=== PATIENT | female | born 1940 | race Two or more races ===

== ENCOUNTER 2020-01-10 16:36 | Inpatient (IN) | payer MEDICARE, OTHER ==
[~2020-01-10] VITALS: Ht 172.7 cm; Wt 69.4 kg
[~2020-01-10 16:36] MED LIST: ALL100T PO; AML5T PO; ASPI-231 PO; ATEN50TA PO; HYDR-4833 PO; HYDR12.56 PO; PAR20T PO; POTA-220 PO; RANI-226 PO; ROSU20TA14 PO
[2020-01-10] MEDS ORDERED: SODIUM CHLORIDE 0.9% 1,000 ML IV ONE (17:10)
[2020-01-10] MEDS ORDERED: SODIUM CHLORIDE 0.9% 500 ML IV ONE (17:10)
[2020-01-10] MEDS ORDERED: PROMETHAZINE HCL 25 MG/ML 1ML IV ONE (17:15)
[2020-01-10] MEDS ORDERED: HYDROmorphone HCL 2 MG/ML VL IV ONE (17:15)
[2020-01-10] MEDS ORDERED: DexAMETHasone SOD PHOS 4 MG/1ML SDV INJ IV ONE (17:15)
[2020-01-10 18:18] LABS: Basophils # (auto) 0.1 10 ^3/uL (0-0.2); Eosinophils # (auto) 0.1 10 ^3/uL (0-0.8)
[2020-01-10 18:26] LABS: Neutrophils % (auto) 72.2 % (37.0-80.0)
[2020-01-10 18:29] LABS: Basophils % (auto) 0.9 % (0.0-2.0); Eosinophils % (auto) 0.9 % (0.0-7.0); Hematocrit 33.7 % (36.0-46.0); Hemoglobin 10.9 g/dL (12.2-16.2); Lymphocytes # (auto) 1.9 10 ^3/uL (0.4-5.4); Lymphocytes % (auto) 15.1 % (10.0-50.0); Mean Corpuscular Hemoglobin 27.3 pg (28.0-32.0); Mean Corpuscular Hgb Conc. 32.3 g/dL (32.0-36.0); Mean Corpuscular Volume 84.5 fL (80.0-100.0); Monocytes # (auto) 1.3 10 ^3/uL (0-1.3); Monocytes % (auto) 10.9 % (0.0-12.0); Neutrophils # (auto) 8.9 10 ^3/uL (1.6-8.6); Nucleated Red Blood Cells % 0.2 %; Platelet Count (auto) 530 10^3/uL (140-450); Red Blood Cells 3.99 10^6/uL (4.0-5.20); White Blood Cell 12.4 10^3/uL (4.4-10.8)
[2020-01-10 20:18] LABS: Albumin 1.7 g/dL (3.4-5.0); Calcium 8.4 mg/dL (8.5-10.1); Magnesium 2.3 mg/dL (1.6-2.6); Potassium 4.1 mmol/L (3.5-5.1)
[2020-01-10 20:23] LABS: BUN/Creatinine Ratio 27.7; Bilirubin, Total 0.6 mg/dL (0.2-1.0); Total Protein 7.7 g/dL (6.4-8.2)
[2020-01-10 23:54] LABS: Urine Bacteria NONE SEEN /hpf (None Seen); Urine Blood Negative /uL (Negative); Urine WBC 10 /hpf (0 - 5)
[2020-01-11] MEDS ORDERED: TEMAZEPAM 15 MG CAP PO PRN (00:15)
[2020-01-11] MEDS ORDERED: cefTRIAXone 1GM/50ML D5W 50 ML IV ONE (00:15)
--- NOTE | 2020-01-11 02:04 | NUR ---
MS admit from [facility] admitted to tele/MS after NO SBAR WAS received. Patient is A/O x4, on RA, skin is intact, 22g IV to the left wrist. Patient oriented to SOTERO LOPEZ primary RN, unit, room, bed, and unit policies regarding patient care and visiting hours. Patient weighed by bedscale and encouraged to call if they need something. All questions and concerns addressed, patient verbalized understanding.
[2020-01-11 02:20] VITALS: BP 107/59
[2020-01-11] MEDS: HYDROcodone-ACET 7.5/325MG TAB PO PRN ×4 (02:52→22:25)
--- NOTE | 2020-01-11 02:52 | NUR ---
PAIN Patient is complaining of pain 5/0-10 to the left knee, it feels like it is burning. [place] 7.5mg administered as ordered. Call light is within reach. Will reassess.
[2020-01-11] MEDS: levoFLOXacin 500MG 100 ML IV SCH (03:11)
[2020-01-11] MEDS ORDERED: GABA100C9 PO (03:41)
[2020-01-11] MEDS ORDERED: ATEN50TA PO (03:41)
[2020-01-11] MEDS ORDERED: FAMO-12 PO (03:41)
--- NOTE | 2020-01-11 04:04 | NUR ---
Hospitalist paged for dietary order.
--- NOTE | 2020-01-11 04:05 | NUR ---
PAIN REASSESSMENT Patient is asleep in bed. No S/S of pain noted. Will continue to monitor.
[2020-01-11 05:00] VITALS: BP 101/52
--- NOTE | 2020-01-11 08:00 | NUR ---
Morning note Patient resting in bed with even and unlabored respirations, no distress noted. Instructed patient on POC, fall precautions and to call for assistance as needed. Patient verbalized understanding. Fall precautions in place with call light within reach.
[2020-01-11 08:28] LABS: BUN/Creatinine Ratio 33.7; Calcium 9.4 mg/dL (8.5-10.1)
[2020-01-11 08:40] LABS: Potassium 4.5 mmol/L (3.5-5.1)
[2020-01-11] MEDS: ALLOPURINOL 100 MG TAB PO SCH (09:21)
[2020-01-11] MEDS: PARoxetine 20 MG TAB PO SCH (09:22)
[2020-01-11] MEDS: ENOXAPARIN SOD 40 MG/0.4 ML SYRINGE SC SCH (09:23)
--- NOTE | 2020-01-11 09:50 | NUR ---
was at bedside - Dr. Diaz Unable to perform bedside procedure due to Lovenox being administered as scheduled today.
[2020-01-11] MEDS: ATENOLOL 50 MG TAB PO SCH (10:00)
[2020-01-11] MEDS: amLODIPine BESYLATE 5 MG TAB PO SCH (10:00)
--- NOTE | 2020-01-11 10:58 | NUR ---
RE: Left buttock Open wound located to the left buttock. Patient reports having skin integrity issue prior to admission due to not being ambulatory prior to admission due to left knee pain. Patient stated "I sometimes had to sit in my urine for a little bit at home." Wound care consult placed per protocol. Patient is able to turn self independently. Patient is continent of urine and bowel. Education provided on skin integrity maintenance and pressure ulcer prevention. Patient verbalized understanding.
--- NOTE | 2020-01-11 11:10 | NUR ---
Wound care photo taken per protocol
[2020-01-11 11:43] LABS: Basophils # (auto) 0 10 ^3/uL (0-0.2); Basophils % (auto) 0.3 % (0.0-2.0); Eosinophils # (auto) 0 10 ^3/uL (0-0.8); Hematocrit 32.6 % (36.0-46.0); Lymphocytes # (auto) 0.9 10 ^3/uL (0.4-5.4); Monocytes # (auto) 0.2 10 ^3/uL (0-1.3); Red Blood Cells 3.76 10^6/uL (4.0-5.20)
[2020-01-11 11:45] LABS: Hemoglobin 10.5 g/dL (12.2-16.2); Lymphocytes % (auto) 10.8 % (10.0-50.0); Mean Corpuscular Hemoglobin 27.9 pg (28.0-32.0); Mean Corpuscular Hgb Conc. 32.2 g/dL (32.0-36.0); Mean Corpuscular Volume 86.6 fL (80.0-100.0); Monocytes % (auto) 2.4 % (0.0-12.0); Neutrophils % (auto) 86.5 % (37.0-80.0); Nucleated Red Blood Cells % 0.1 %; Platelet Count (auto) 557 10^3/uL (140-450); Red Cell Distribution Width 18.3 % (11.8-14.3); White Blood Cell 8.1 10^3/uL (4.4-10.8)
--- NOTE | 2020-01-11 11:48 | NUR ---
was at bedside - Dr. Suzanne Andrea This RN was at bedside.
--- NOTE | 2020-01-11 12:25 | NUR ---
RE: elevated PLTs Notified Dr. Suzanne Andrea of elevated PLT level. verbalized understanding. Continue to monitor.
--- NOTE | 2020-01-11 14:00 | NUR ---
WOUND CARE NOTE: IN TO SEE PATIENT AT THIS TIME PER WOUND CARE CONSULT REQUEST. PATIENT RECENTLY ADMITTED TO [facility] WITH DIAGNOSIS OF LEFT KNEE EFFUSION. CURRENT TARUN SCORE IS 16. PATIENT NOTED TO HAVE WOUNDS TO SACRUM/BUTTOCKS. WOUND PHOTO TAKEN UPON ADMIT BY BEDSIDE NURSE FOR REFERENCE. PATIENT STATES THAT SHE INJURED HER LEFT KNEE, AND WAS LEFT BEDBOUND FOR MORE THAN ONE WEEK. SHE ADMITTED THAT SHE DID NOT MOVE MUCH. PATIENT ALSO IS CONTINENT OF URINE, AND IS INCONTINENT FREQUENTLY. PATIENT IS NOTED TO BE ABLE TO SELF TURN/REPOSITION SELF. SHE IS AWARE THAT SHE HAS A WOUND TO THE LEFT BUTTOCK. PATIENT IS NOTED TO HAVE MASD WITH SUPERFICIAL SKIN EROSION NOTED TO LEFT AND RIGHT BUTTOCK/SACRUM. SKIN IS DARK RED, ABRADED. MOISTURE BARRIER CREAM APPLIED. 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 OPEN WOUND BED IS BRIGHT RED. SCANT SEROUS DRAINAGE NOTED. APPLIED ZGUARD TO WOUND. NEW WOUND PHOTO TAKEN AT THIS TIME FOR REFERENCE. RECOMMEND: FREQUENT TURN SCHEDULE Q 2 HOURS, PRN CONDITION PERMITS, WITH PRESSURE REDISTRIBUTION USING PILLOWS/WEDGES, BID/PRN APPLICATION WITH ZGUARD MOISTURE BARRIER CREAM TO OPEN AND ERODED SKIN ON SACRUM/BUTTOCKS, DIETARY CONSULT, SKIN/WOUND CARE PLAN, CONTINUED MONITORING BY WOUND CARE TEAM. Addendum: 01/11/20 at 1548 by Lizbeth Esquivel RN Amended: Links added.
--- NOTE | 2020-01-11 14:06 | NUR ---
promotional model at bedside.
--- NOTE | 2020-01-11 15:03 | NUR ---
RE: Pain Patient requesting PRN pain medication for left knee pain. PRN pain medication not able to be administered at this time per MD order. Instructed patient on the time that medication can be administered. Patient verbalized understanding. Ice pack provided for comfort.
[2020-01-11] MEDS ORDERED: FLUT1SPR5 (15:47)
[2020-01-11] MEDS ORDERED: PARO30TA99 PO (15:49)
[2020-01-11] MEDS ORDERED: ROSU20TA14 PO (15:50)
[2020-01-11] MEDS ORDERED: MELA3TAB27 PO (15:52)
[2020-01-11] MEDS ORDERED: FERR-20 PO (15:53)
--- NOTE | 2020-01-11 16:26 | NUR ---
IV started 22G started in the patient's LHA with clean technique. Patient tolerated well. IV secured. IV education provided. Patient verbalized understanding. Bed returned to lowest locked position with call light within reach.
[2020-01-11 17:00] VITALS: BP 127/68
--- NOTE | 2020-01-11 18:54 | NUR ---
Closing note Patient resting in bed with even and unlabored respirations, no distress noted. Educated patient on pressure ulcer prevention and to turn frequently. Patient verbalized understanding. Patient able to turn self independently. Fall precautions in place with call light within reach.
--- NOTE | 2020-01-11 19:30 | NUR ---
Care endorsed to PRADIP Berry.
--- NOTE | 2020-01-11 19:40 | NUR ---
Opening Shift Note Pt resting in bed with eyes open and resp rate is even and unlabored. NO s/s of any distress noted at this time. POC discussed with pt and pt verbalizes understanding. Bed is low, wheels are locked, and call light is with in reach.
--- NOTE | 2020-01-11 20:25 | NUR ---
Pt found with IV dislodged and new IV started in left hand w/ 22g IV cath.
[2020-01-11 22:00] VITALS: BP 118/52
[2020-01-12] VITALS (8 sets, daily range): BP systolic 126–141; BP diastolic 64–86
[2020-01-12] MEDS: levoFLOXacin 500MG 100 ML IV SCH (00:31)
[2020-01-12] MEDS: ENOXAPARIN SOD 40 MG/0.4 ML SYRINGE SC SCH (07:06)
--- NOTE | 2020-01-12 07:45 | NUR ---
Morning note Patient resting in bed with even and unlabored respirations, no distress noted. Instructed patient on POC, fall precautions, pressure ulcer prevention and to call for assistance as needed. Patient verbalized understanding. Fall precautions in place with call light within reach. Patient able to turn self independently.
[2020-01-12] MEDS: HYDROcodone-ACET 7.5/325MG TAB PO PRN ×2 (09:27→16:08)
[2020-01-12] MEDS: amLODIPine BESYLATE 5 MG TAB PO SCH (09:28)
[2020-01-12] MEDS: ATENOLOL 50 MG TAB PO SCH (09:28)
[2020-01-12] MEDS: PARoxetine 20 MG TAB PO SCH (09:28)
[2020-01-12] MEDS: ALLOPURINOL 100 MG TAB PO SCH (09:28)
[2020-01-12 09:29] LABS: Basophils # (auto) 0 10 ^3/uL (0-0.2); Basophils % (auto) 0.2 % (0.0-2.0); Red Blood Cells 3.47 10^6/uL (4.0-5.20); White Blood Cell 11.4 10^3/uL (4.4-10.8)
[2020-01-12 09:30] LABS: Eosinophils # (auto) 0.1 10 ^3/uL (0-0.8); Eosinophils % (auto) 0.8 % (0.0-7.0); Hemoglobin 9.7 g/dL (12.2-16.2); Lymphocytes # (auto) 1.8 10 ^3/uL (0.4-5.4); Lymphocytes % (auto) 15.5 % (10.0-50.0); Mean Corpuscular Hemoglobin 27.8 pg (28.0-32.0); Mean Corpuscular Hgb Conc. 32.2 g/dL (32.0-36.0); Mean Corpuscular Volume 86.3 fL (80.0-100.0); Monocytes % (auto) 8.6 % (0.0-12.0); Neutrophils # (auto) 8.5 10 ^3/uL (1.6-8.6); Neutrophils % (auto) 74.9 % (37.0-80.0); Platelet Count (auto) 584 10^3/uL (140-450); Red Cell Distribution Width 18.1 % (11.8-14.3)
--- NOTE | 2020-01-12 10:54 | NUR ---
MD was at bedside - Dr. Diaz; bedside procedure performed Bedside procedure performed by MD on the left knee. Patient tolerated well. This RN was at bedside.
--- NOTE | 2020-01-12 10:56 | NUR ---
Liquids and food removed from bedside for NPO status per MD order.
--- NOTE | 2020-01-12 10:56 | NUR ---
was at bedside - Dr. Suzanne Andrea.
[2020-01-12 11:18] LABS: INR 1.2 (0.9-1.15)
--- NOTE | 2020-01-12 13:58 | NUR ---
Nutrition Assessment Notes Please refer to link for full assessment notes. Est energy needs: 7500-6042 kcals (20-23 kcal/kgBW) Est protein needs: 75-82 gms/day (1.0-1.1 gm/kgBW) Will continue to monitor and reassess prn. Addendum: 01/12/20 at [address] Amended: Links added.
--- NOTE | 2020-01-12 14:03 | NUR ---
assessment Patient is a 79 year old female who is alert and oriented. Prior to admission patient lived home alone and was independent. Patient informed me she was able to care for her own ADLs. Per patient she will return home to her prior living arrangements post discharge and family will transport her home. Patient informed me she has a cane for home use. Patient informed me she was admitted for knee pain. Per patient she will have knee drained today. Patient informed me she doesn't think she can take care of her needs with this pain. Patient is refusing resources for private pay caregivers. I informed patient we will see if she qualifies for SNF when its closer to discharge. Patient will need a PT evaluation. Patients PCP is Dr Hastings. I informed patient she has a right to speak to a socially responsible investment adviser regarding all care. I informed patient she has a right to participate in any and all discharge planning. Patient has a POA and advanced directive. Patient verbalized understanding and agreed to discharge plan. Addendum: 01/12/20 at 1407 by Nelida MONGE Amended: Links added.
--- NOTE | 2020-01-12 16:06 | NUR ---
RE: Pain Patient requesting PRN pain medication. Only PO PRN pain medication available. Notified Dr. Suzanne Andrea. Order received and read back to verify.
[2020-01-12] MEDS ORDERED: MORPHINE SULF INJ 2 MG/ML SYRINGE 1ML IV PRN ×2 (16:15→19:15)
--- NOTE | 2020-01-12 16:22 | NUR ---
Anesthesiologist called and requested repeat liver panel test. Order placed.
[2020-01-12 16:41] LABS: Albumin 1.7 g/dL (3.4-5.0); Bilirubin, Direct 0.2 mg/dL (0-0.2)
[2020-01-12 16:44] LABS: Bilirubin, Total 0.3 mg/dL (0.2-1.0); Total Protein 7.4 g/dL (6.4-8.2)
--- NOTE | 2020-01-12 16:46 | NUR ---
Called laboratory RE: STAT lab order Tech to come to bedside.
[2020-01-12] MEDS ORDERED: LIDOCAINE 1% HCL (LOCAL ANESTH.) INJ 20ML MDV ONE ×2 (17:05→18:14)
--- NOTE | 2020-01-12 17:15 | NUR ---
Patient transferred to Pre-op via hospital bed. Respirations even and unlabored, no distress noted. IV patent with no s/s of infiltration or leaking.
[2020-01-12] MEDS ORDERED: CLINDAMYCIN 600MG IV 50 ML IV ONE (17:23)
[2020-01-12] MEDS ORDERED: MIDAZOLAM HCL 1MG/1ML-2 ML VIAL ONE (17:52)
[2020-01-12] MEDS ORDERED: fentaNYL CITRATE 100 MCG/2 ML VL ONE ×3 (17:52→18:29)
--- NOTE | 2020-01-12 17:52 | NUR ---
RE: Intervention Patient off unit at procedure. Addendum: 01/12/20 at 6803 by Deanne Nina RN Amended: Links added.
[2020-01-12] MEDS ORDERED: PROPOFOL 10 MG/ML 20 ML IV ONE (17:56)
--- NOTE | 2020-01-12 18:48 | NUR ---
Closing note Patient off unit at procedure.
--- NOTE | 2020-01-12 19:09 | NUR ---
Care endorsed to Kristi Espinosa RN.
[2020-01-12] MEDS ORDERED: ONDANSETRON HCL 4 MG/2 ML VIAL IV PRN (19:15)
[2020-01-12] MEDS ORDERED: hydrALAZINE HCL 20 MG/ML VL IV PRN (19:15)
[2020-01-12] MEDS ORDERED: ePHEDrine SULFATE 50 MG/ML AMP IV PRN (19:15)
--- NOTE | 2020-01-12 20:10 | NUR ---
Received report from Yola MOSELEY and pt received back to room 274-B in stable cond. Pt is slightly drowsy but alert and oriented x4. Pt c/o right knee pain and will medicate per orders. Pt VSS- see vs record. Pt reoriented to room and procedures and POC discussed with pt. Pt verbalizes understanding. Bed is low, wheels are locked, and call light is with in reach. Bed alarm is set for pt safety.
--- NOTE | 2020-01-12 20:15 | NUR ---
SEE VS RECORD FOR VS Q 30 MIN X4 STARTING NOW.
[2020-01-12] MEDS: MORPHINE SULF INJ 2 MG/ML SYRINGE 1ML IV PRN (20:49)
[2020-01-13] MEDS: levoFLOXacin 500MG 100 ML IV SCH (02:00)
--- NOTE | 2020-01-13 04:15 | NUR ---
PT INCONT OF URINE AND LINENS AND GOWN CHANGED AT THIS TIME.
[2020-01-13] MEDS: MORPHINE SULF INJ 2 MG/ML SYRINGE 1ML IV PRN ×2 (04:22→14:55)
[2020-01-13 05:07] VITALS: BP 128/71
[2020-01-13 08:00] VITALS: BP 124/69
[2020-01-13 09:07] VITALS: BP 124/69
[2020-01-13] MEDS: ALLOPURINOL 100 MG TAB PO SCH (10:58)
[2020-01-13] MEDS: ENOXAPARIN SOD 40 MG/0.4 ML SYRINGE SC SCH (10:58)
[2020-01-13] MEDS: ATENOLOL 50 MG TAB PO SCH (10:59)
[2020-01-13] MEDS: PARoxetine 20 MG TAB PO SCH (10:59)
[2020-01-13] MEDS: amLODIPine BESYLATE 5 MG TAB PO SCH (11:00)
[2020-01-13] MEDS: HYDROcodone-ACET 7.5/325MG TAB PO PRN ×2 (11:06→18:26)
[2020-01-13 13:00] VITALS: BP 118/67
[2020-01-13 16:43] VITALS: BP 112/62
--- NOTE | 2020-01-13 18:30 | NUR ---
PATIENT DRAINAGE AMOUNT FROM VAC ON LEFT KNEE FOR MY SHIFT WAS 80ML RED SANGUINOUS
--- NOTE | 2020-01-13 19:25 | NUR ---
RECEIVED PATIENT FROM DAY SHIFT RN. PATIENT RESTING IN BED. NO S/S OF DISTRESS NOTED. C/O PAIN ON LEFT KNEE @ 6/10 AFTER PAIN MEDICATION GIVEN EARLIER. REINFORCED THE SCHEDULE OF PAIN MANAGEMENT. WILL COME BACK FOR PAIN MEDICATION WHEN THE TIME IS DUE AND PER PATIENT REQUESTS. PATIENT VERBALIZED UNDERSTANDING. DRESSING ON LEFT KNEE C/D/I WITH NEGATIVE DRAINAGE VAC. BLOODY OUTPUT NOTED IN THE DRAINAGE TUBE. NOT IN THE BAG. POC INSTRUCTED AND ENCOURAGED PATIENT TO CALL FOR PATTERN ASSEMBLER IF NEEDED. BED IN LOWEST POSITION WITH SIDE RAILS UP X 2. CALL HER WITHIN REACH. ALARM ON. CONTINUE TO MONITOR FOR CHANGES Q1H AND PRN.
--- NOTE | 2020-01-13 20:20 | NUR ---
SCD IS ON NOW. PATIENT TOLERATED WELL. CONTINUE CARE.
[2020-01-13 22:03] VITALS: BP 118/59
--- NOTE | 2020-01-13 22:45 | NUR ---
ASSISTED PATIENT ON BEDPAN. PATIENT TOLERATED WELL. CONTINUE TO MONITOR
[2020-01-14] MEDS: levoFLOXacin 500MG 100 ML IV SCH (00:44)
[2020-01-14] MEDS: HYDROcodone-ACET 7.5/325MG TAB PO PRN ×4 (00:44→22:01)
--- NOTE | 2020-01-14 00:44 | NUR ---
PATIENT C/O PAIN @ 05/06, PATIENT PREFERRED NORCO, MEDICATED PATIENT ORDERED.
--- NOTE | 2020-01-14 01:40 | NUR ---
REASSESSED PAIN LEVEL DOWN TO 5/10. CONTINUE TO MONITOR.
[2020-01-14 05:41] VITALS: BP 15/63
--- NOTE | 2020-01-14 05:50 | NUR ---
ASSISTED PATIENT ON BEDPAN. PATIENT TOLERATED WELL. CONTINUE TO MONITOR
[2020-01-14 05:58] LABS: Eosinophils # (auto) 0.1 10 ^3/uL (0-0.8); Hemoglobin 9.1 g/dL (12.2-16.2); Lymphocytes # (auto) 1.7 10 ^3/uL (0.4-5.4); Monocytes % (auto) 10.2 % (0.0-12.0); White Blood Cell 9.3 10^3/uL (4.4-10.8)
[2020-01-14 06:01] LABS: Basophils # (auto) 0.1 10 ^3/uL (0-0.2); Basophils % (auto) 0.6 % (0.0-2.0); Eosinophils % (auto) 0.8 % (0.0-7.0); Hematocrit 28.1 % (36.0-46.0); Lymphocytes % (auto) 18.2 % (10.0-50.0); Mean Corpuscular Hemoglobin 27.5 pg (28.0-32.0); Mean Corpuscular Hgb Conc. 32.5 g/dL (32.0-36.0); Mean Corpuscular Volume 84.6 fL (80.0-100.0); Monocytes # (auto) 0.9 10 ^3/uL (0-1.3); Neutrophils # (auto) 6.5 10 ^3/uL (1.6-8.6); Neutrophils % (auto) 70.2 % (37.0-80.0); Platelet Count (auto) 509 10^3/uL (140-450); Red Blood Cells 3.32 10^6/uL (4.0-5.20); Red Cell Distribution Width 16.7 % (11.8-14.3)
--- NOTE | 2020-01-14 06:51 | NUR ---
PATIENT C/O PAIN @ 05/06, PATIENT PREFERRED NORCO, MEDICATED PATIENT ORDERED.
--- NOTE | 2020-01-14 07:38 | NUR ---
Opening Shift Note Assumed care of patient, awake and alert. No S/S of distress/SOB or pain. Instructed on POC and to call for assist PRN, will continue to monitor for changes Q1hr and PRN. Bed locked in lowest position with two side rails up and call light in reach.
[2020-01-14 08:00] VITALS: BP 100/52
[2020-01-14 09:00] VITALS: BP_SYST 100; BP_SYST 153; BP_DIAS 52; BP_DIAS 91
[2020-01-14] MEDS: amLODIPine BESYLATE 5 MG TAB PO SCH (10:00)
[2020-01-14] MEDS: ATENOLOL 50 MG TAB PO SCH (10:00)
[2020-01-14] MEDS: ALLOPURINOL 100 MG TAB PO SCH (10:21)
[2020-01-14] MEDS: ENOXAPARIN SOD 40 MG/0.4 ML SYRINGE SC SCH (10:21)
[2020-01-14] MEDS: PARoxetine 20 MG TAB PO SCH (10:21)
[2020-01-14 13:00] VITALS: BP 97/57
[2020-01-14 17:00] VITALS: BP 118/67
--- NOTE | 2020-01-14 18:34 | NUR ---
TOTAL DRAINAGE OUTPUT FOR MY SHIFT IS 15 ML.
--- NOTE | 2020-01-14 19:30 | NUR ---
RECEIVED PATIENT FROM DAY SHIFT RN. PATIENT RESTING IN BED. NO S/S OF DISTRESS NOTED. C/O PAIN ON LEFT KNEE @ 5/10 AFTER PAIN MEDICATION GIVEN EARLIER. PATIENT UNDERSTOOD THE SCHEDULE OF PAIN MANAGEMENT. WILL COME BACK FOR PAIN MEDICATION WHEN THE TIME IS DUE AND PER PATIENT REQUESTS. DRESSING ON LEFT KNEE C/D/I DRAINING WITH HEMOVAC. POC INSTRUCTED AND ENCOURAGED PATIENT TO CALL FOR STEAMER OPERATOR IF NEEDED. BED IN LOWEST POSITION WITH SIDE RAILS UP X 2. CALL HER WITHIN REACH. ALARM ON. CONTINUE TO MONITOR FOR CHANGES Q1H AND PRN.
[2020-01-14 22:00] VITALS: BP 128/65
--- NOTE | 2020-01-14 22:01 | NUR ---
PATIENT C/O PAIN @ 810 AND PREFERRED NORCO, MEDICATED PATIENT ORDERED.
--- NOTE | 2020-01-14 22:05 | NUR ---
PATIENT'S TEMP 100.5, COOLING MEASURE APPLIED. SINCE PATIENT JUST HAD NORCO EARLIER, WILL CONTINUE TO MONITOR THE TEMP.
--- NOTE | 2020-01-14 22:43 | NUR ---
REASSESSED PATIENT TEMP 99.9. CONTINUE COOLING MEASURE. CONTINUE TO MONITOR.
--- NOTE | 2020-01-14 23:00 | NUR ---
REASSESSED PAIN LEVEL DOWN TO 6/10. CONTINUE TO MONITOR.
--- NOTE | 2020-01-15 01:08 | NUR ---
REASSESSED TEMP 98.2. CONTINUE TO MONITOR.
[2020-01-15] MEDS: levoFLOXacin 500MG 100 ML IV SCH (01:15)
--- NOTE | 2020-01-15 03:25 | NUR ---
ASSISTED PATIENT ON BEDPAN. PATIENT TOLERATED WELL. CONTINUE TO MONITOR
[2020-01-15 05:00] VITALS: BP 113/64
--- NOTE | 2020-01-15 06:10 | NUR ---
ASSISTED PATIENT ON BEDPAN. PATIENT TOLERATED WELL. CONTINUE TO MONITOR
--- NOTE | 2020-01-15 07:40 | NUR ---
Opening shift note Assumed care of patient. Patient A&Ox4, respirations even and non-labored with no s/s of distress. Hemovac compressed, patent and draining 15 mL of serosanguineous fluid. Dressings clean, dry, and intact. IV flushed, patent and intact. Discussed POC with patient who verbalized understanding. Bed lowered/locked with 2 side rails up. Call light within reach. Will continue to monitor.
[2020-01-15 08:00] VITALS: BP 124/64
[2020-01-15 09:00] VITALS: BP 124/64
[2020-01-15] MEDS: amLODIPine BESYLATE 5 MG TAB PO SCH (09:16)
[2020-01-15] MEDS: ALLOPURINOL 100 MG TAB PO SCH (09:16)
[2020-01-15] MEDS: PARoxetine 20 MG TAB PO SCH (09:16)
[2020-01-15] MEDS: HYDROcodone-ACET 7.5/325MG TAB PO PRN ×2 (09:17→16:38)
--- NOTE | 2020-01-15 09:17 | NUR ---
Pain Patient c/o left knee pain 05/06. Discussed Morphine and [place] with patient. Administered [place] 7.5/325 mg per EMAR. Will continue to monitor.
[2020-01-15] MEDS: ENOXAPARIN SOD 40 MG/0.4 ML SYRINGE SC SCH (09:18)
[2020-01-15] MEDS: ATENOLOL 50 MG TAB PO SCH (09:18)
--- NOTE | 2020-01-15 10:17 | NUR ---
Pain reassessed Patient resting with eyes closed, respirations deep, even and non-labored with no s/s of distress or discomfort. Will continue to monitor.
[2020-01-15 12:46] VITALS: BP 108/58
[2020-01-15 13:48] LABS: Basophils # (auto) 0.1 10 ^3/uL (0-0.2); Basophils % (auto) 0.9 % (0.0-2.0); Eosinophils # (auto) 0 10 ^3/uL (0-0.8); Eosinophils % (auto) 0.6 % (0.0-7.0); Hematocrit 27.9 % (36.0-46.0); Hemoglobin 8.9 g/dL (12.2-16.2); Lymphocytes # (auto) 1.2 10 ^3/uL (0.4-5.4); Lymphocytes % (auto) 14.8 % (10.0-50.0); Mean Corpuscular Hemoglobin 27.6 pg (28.0-32.0); Mean Corpuscular Hgb Conc. 32.1 g/dL (32.0-36.0); Mean Corpuscular Volume 86.2 fL (80.0-100.0); Monocytes # (auto) 0.8 10 ^3/uL (0-1.3); Monocytes % (auto) 10.1 % (0.0-12.0); Neutrophils % (auto) 73.6 % (37.0-80.0); Platelet Count (auto) 467 10^3/uL (140-450); Red Blood Cells 3.23 10^6/uL (4.0-5.20); Red Cell Distribution Width 17.5 % (11.8-14.3); White Blood Cell 8.2 10^3/uL (4.4-10.8)
[2020-01-15 14:01] LABS: Albumin 1.6 g/dL (3.4-5.0); BUN/Creatinine Ratio 20.9; Calcium 8.4 mg/dL (8.5-10.1); Potassium 4.4 mmol/L (3.5-5.1)
[2020-01-15 14:04] LABS: Bilirubin, Total 0.4 mg/dL (0.2-1.0); Total Protein 6.8 g/dL (6.4-8.2)
--- NOTE | 2020-01-15 14:50 | NUR ---
D/C Planning Per consult for home health physical therapy. Faxed clinical information to [facility]. Per José Miguel with [facility] patient has been accepted and service to start within 24-48hrs upon d/c day.
--- NOTE | 2020-01-15 15:53 | NUR ---
DR VARGAS BEDSIDE D/C'd DRAIN FROM LEFT KNEE; BARBARA IN PLACE, EDGES APPROXIMATED, NO DRAINAGE, NO SIGNS OF INFECTION, DR VARGAS APPLIED STERILE GAUZE , WRAPPED WITH KERLIX AND SECURED WITH TAPE. PATIENT TOLERATED WELL.
[2020-01-15 17:00] VITALS: BP 122/59
--- NOTE | 2020-01-15 18:00 | NUR ---
NEW IV STARTED 20G LEFT FOREARM SALINE LOCKED. Addendum: 01/15/20 at 1911 by MICHELLE CLINE RN 20G REQUIRED FOR CT WITH CONTRAST Addendum: 01/16/20 at 1202 by MICHELLE CLINE RN IV SIZE 22 G NOT 20
[2020-01-15 21:50] VITALS: BP 110/57
[2020-01-15] MEDS: MORPHINE SULF INJ 2 MG/ML SYRINGE 1ML IV PRN (22:23)
[2020-01-16] MEDS: levoFLOXacin 500MG 100 ML IV SCH (00:19)
--- NOTE | 2020-01-16 00:30 | NUR ---
IV access for CT with contrast Unable to obtain [address]. Hospitalist made aware, received orders for midline placement. Radiology made aware.
[2020-01-16] MEDS: HYDROcodone-ACET 7.5/325MG TAB PO PRN ×3 (01:26→18:03)
--- NOTE | 2020-01-16 01:26 | NUR ---
Pain level 8/10 Patient requested [place] for left knee pain 8/10.
[2020-01-16 05:00] VITALS: BP 118/58
--- NOTE | 2020-01-16 07:20 | NUR ---
Opening shift note Assumed care of patient. Patient A&Ox4, respirations even and non-labored with no s/s of distress. Discussed POC with patient who verbalized understanding. Patient stated her left knee pain level was 5/10 which was a tolerable rate at this time. Bed lowered/locked with 2 side rails up. Call light within reach. Will continue to monitor.
[2020-01-16 08:00] VITALS: BP 111/69
[2020-01-16 09:00] VITALS: BP 111/64
--- NOTE | 2020-01-16 09:40 | NUR ---
Pain Patient having 8/10 right knee pain. Administered 7.5/325 [place] per EMAR. Will continue to monitor.
[2020-01-16] MEDS: ENOXAPARIN SOD 40 MG/0.4 ML SYRINGE SC SCH (09:44)
[2020-01-16] MEDS: ATENOLOL 50 MG TAB PO SCH (09:45)
[2020-01-16] MEDS: ALLOPURINOL 100 MG TAB PO SCH (09:45)
[2020-01-16] MEDS: amLODIPine BESYLATE 5 MG TAB PO SCH (09:46)
[2020-01-16] MEDS: PARoxetine 20 MG TAB PO SCH (09:46)
--- NOTE | 2020-01-16 10:45 | NUR ---
Dr. Diaz bedside
--- NOTE | 2020-01-16 11:00 | NUR ---
Pain Reassessed Patient reassessed for pain during PT. Patient stated that after starting Pt her pain went from 5/10 to 8/10. Administered Morphine 2mg per EMAR. Will continue to monitor.
--- NOTE | 2020-01-16 11:00 | NUR ---
DR Bren MOCTEZUMA BEDSIDE.
[2020-01-16] MEDS: MORPHINE SULF INJ 2 MG/ML SYRINGE 1ML IV PRN ×2 (11:08→21:58)
[2020-01-16] MEDS ORDERED: LACTULOSE 20Gm/30ML SOLN PO ONE (11:15)
--- NOTE | 2020-01-16 11:30 | NUR ---
Pain reassessed Patient sitting up, A&Ox4 with no s/s of distress. Patient stated that her pain was a 4/10 and that she felt much better. Will continue to monitor.
[2020-01-16 13:00] VITALS: BP 101/60
--- NOTE | 2020-01-16 13:41 | NUR ---
Dressing change Changed dressing as instruction by Dr. Diaz. Left knee, edges approximated, no drainage or s/s of infection. 17 peterson present. Cleansed with NS, pat dry with sterile gauze, covered with sterile gauze. Secured with Kerlix and tape. Patient tolerated well.
--- NOTE | 2020-01-16 15:17 | NUR ---
LACTULOSE GIVEN ONE TIME ORDER.
[2020-01-16 17:00] VITALS: BP 110/62
--- NOTE | 2020-01-16 19:16 | NUR ---
ENDORSED CARE TO NIGHT RN
--- NOTE | 2020-01-16 19:20 | NUR ---
Opening Shift Note Received report from Miguelito MOSELEY. Assumed care of patient, awake and alert. No S/S of distress/SOB or pain. Instructed on POC and to call for assist PRN. Fall precaution measures in place, will continue to monitor for changes Q1hr and PRN.
--- NOTE | 2020-01-16 21:58 | NUR ---
Complains of L knee pain 05/06, Morphine IV given.
[2020-01-16 22:00] VITALS: BP 104/58
--- NOTE | 2020-01-16 22:58 | NUR ---
Reassessed pain level, states no pain at this time.
[2020-01-17] VITALS (7 sets, daily range): BP systolic 95–117; BP diastolic 49–63
[2020-01-17] MEDS: MORPHINE SULF INJ 2 MG/ML SYRINGE 1ML IV PRN ×4 (04:05→23:45)
--- NOTE | 2020-01-17 04:05 | NUR ---
Request for pain medication 05/06 on L knee, Morphine IV given.
--- NOTE | 2020-01-17 04:50 | NUR ---
Pain level is 0, continue care.
--- NOTE | 2020-01-17 06:29 | NUR ---
Wound dressing slight to moderately soaked, dressing changed.
--- NOTE | 2020-01-17 08:00 | NUR ---
Opening Note Assumed care of patient, she is A & O x 4, no s/s of distress. Patient c/o pain 8/ to the right knee, will medicate per orders. Patient states "I live alone, I don't have any family to help me at home, I don't know how I will take care of myself." POC discussed with patient, will follow up with physician regarding discharge plans. Bed is in lowest, locked position, call light within reach. Will continue to monitor Q1h and PRN.
--- NOTE | 2020-01-17 08:44 | NUR ---
01/16/20 PT made 2 attempts to get patient out of bed. First, pt was not medicated and second attempt pt received [place], orally. Pt made the attempt to sit at the edge of bed however, pain level was increased. Discussed with patient the importance of mobility and ROM for L knee, pt understood. Pt worked on exercises while lying in bed; supine. Discussed with patients nurse the possibility of pt receiving morphine prior to working w/ PT Addendum: 01/17/20 at 0847 by Kaylynn Berry PT Amended: Links added.
--- NOTE | 2020-01-17 08:47 | NUR ---
01/16/20 Pt worked on ankle pumps, quad sets, gluteal sets and hip abd/add x 10 reps for each exercise. Pt is willing to work with PT however, her pain level is high and pain is excruciating to her L knee Addendum: 01/17/20 at 0849 by Kaylynn Berry PT Amended: Links added.
[2020-01-17] MEDS: levoFLOXacin 500 MG TAB PO SCH (09:51)
[2020-01-17] MEDS: amLODIPine BESYLATE 5 MG TAB PO SCH (09:53)
[2020-01-17] MEDS: PARoxetine 20 MG TAB PO SCH (09:53)
[2020-01-17] MEDS: ATENOLOL 50 MG TAB PO SCH (09:54)
[2020-01-17] MEDS: ALLOPURINOL 100 MG TAB PO SCH (09:54)
[2020-01-17] MEDS: ENOXAPARIN SOD 40 MG/0.4 ML SYRINGE SC SCH (09:55)
--- NOTE | 2020-01-17 10:40 | NUR ---
Dr. Andrea at bedside. Orders received, read back and verified. Patient verbalized need for more assistance at home, she is unable to care for her own ADLs in her current condition, and has no help at home. SNF placement will be considered for patient. Will medicate per orders for constipation, no BM since 01/09.
--- NOTE | 2020-01-17 10:45 | NUR ---
Spoke to Nelida Francois regarding SNF placement She will start to work on it. Will follow up with Nelida regarding placement.
[2020-01-17] MEDS ORDERED: MILK OF MAGNESIA 30ML SUSP PO ONE (11:00)
[2020-01-17] MEDS: HYDROcodone-ACET 7.5/325MG TAB PO PRN ×2 (12:07→18:39)
--- NOTE | 2020-01-17 14:00 | NUR ---
Patient states she spoke to public health social worker. They would be working on checking if she qualifies for SNF based on insurance coverage.
--- NOTE | 2020-01-17 16:21 | NUR ---
Nutrition Followup Notes Pt wt is 76.3 kg Pt appetite is fair aeb 50% x3 PO intake per RN doc. Pt with no noted distress except continued constipation, no complaints. Will continue to monitor PO status, skin status, pertinent labs and weight trends. Will f/u in 3 to 5 days. Est energy needs: 9926-0225 kcals (20-23 kcal/kgBW) Est protein needs: 75-82 gms/day (1.0-1.1 gm/kgBW) Will continue to monitor and reassess prn. LABS: GLUC 137 H, CA 8.4 L, ALB 1.6 L GI: Every 5-7 days, currently constipated per RN doc. BS: 18 mod risk, please refer to wound assessment report for full details. PES: Problem Altered nutrition related lab values r/t current medical condition aeb hyperchloremia, hyperglycemia, hypoalbuminemia, elev LFTs, elev Alk Phos Comments Will continue to monitor NPO status, skin status, pertinent labs and weight trends. Will f/u in 3 to 5 days. 1) Continue to monitor pt PO intake to meet at least 75% of meals 2) If albumin continues trending down consider Prostat 1 pkt BID 3) Continue current plan of care
--- NOTE | 2020-01-17 17:00 | NUR ---
No updates from Taxi Truck Driver regarding SNF placement. Will continue to monitor patient Q1h and PRN.
--- NOTE | 2020-01-17 17:08 | NUR ---
Dr. Diaz at bedside. Dr. Diaz would like the patient to follow up with him for staple removal on January 25. Need to call to make an appointment. Office is closed at this time, will endorse to NOC shift.
--- NOTE | 2020-01-17 19:30 | NUR ---
Opening Shift Note Received report from Herminia MOSELEY. Assumed care of patient, awake and alert. No S/S of distress/SOB or pain. Instructed on POC and to call for assist PRN, will continue to monitor for changes Q1hr and PRN.
[2020-01-18 04:56] VITALS: BP 110/64
--- NOTE | 2020-01-18 05:30 | NUR ---
Discharge wound photo taken. Dressing on L knee changed.
[2020-01-18] MEDS: HYDROcodone-ACET 7.5/325MG TAB PO PRN (05:53)
[2020-01-18 09:00] VITALS: BP 130/64
--- NOTE | 2020-01-18 09:02 | NUR ---
PAIN PATIENT C/O LEFT KNEE PAIN WHICH SHE RATES AT A 8/10. PATIENT REQUESTING PAIN MEDICATION THROUGH IV. WILL ASSESS VS AND MEDICATE PER MD ORDER. WILL CONTINUE TO MONITOR.
[2020-01-18] MEDS: MORPHINE SULF INJ 2 MG/ML SYRINGE 1ML IV PRN ×4 (09:36→22:04)
[2020-01-18] MEDS: ENOXAPARIN SOD 40 MG/0.4 ML SYRINGE SC SCH (09:37)
[2020-01-18] MEDS: levoFLOXacin 500 MG TAB PO SCH (09:44)
[2020-01-18] MEDS: PARoxetine 20 MG TAB PO SCH (09:45)
[2020-01-18] MEDS: amLODIPine BESYLATE 5 MG TAB PO SCH (09:46)
[2020-01-18] MEDS: ALLOPURINOL 100 MG TAB PO SCH (09:46)
[2020-01-18] MEDS: ATENOLOL 50 MG TAB PO SCH (09:48)
--- NOTE | 2020-01-18 10:06 | NUR ---
RE PAIN PATIENT VERBALIZES DECREASED PAIN LEVEL AND NOW RATES IT A A 5/10 WHICH PER PATIENT IS A TOLERABLE LEVEL. PATIENT REPOSITIONED FOR OPTIMAL COMFORT. NO FURTHER ACTIONS NEEDED AT THIS TIME. WILL CONTINUE TO MONITOR.
--- NOTE | 2020-01-18 10:43 | NUR ---
MD MOCTEZUMA AT BED SIDE DISCUSSING POC WITH PATIENT. PATIENT VERBALIZES UNDERSTANDING. NEW ORDERS RECEIVED. WILL CONTINUE TO MONITOR.
--- NOTE | 2020-01-18 10:51 | NUR ---
CHILD'S NURSE LILIANE DISCUSSING POC AND OPTIONS WITH PATIENT VIA PHONE
--- NOTE | 2020-01-18 12:20 | NUR ---
WOUND CARE NOTE: Patient has DC order. Discharged photo of wounds taken by bedside nurse this morning.
[2020-01-18 13:00] VITALS: BP 104/55
--- NOTE | 2020-01-18 14:20 | NUR ---
PER LILIANE [facility] REQUESTING TWO NEGATIVE COVID TESTS WITHIN 24 HOURS OF EACH OTHER UNTIL THEY CAN ACCEPT PATIENT. MICHELLE EDEN MD.
--- NOTE | 2020-01-18 14:45 | NUR ---
MD MOCTEZUMA PAGED TO INFORM PATIENTS TRANSFER STATUS PER PRIMARY SCHOOL TEACHER LIBRARIAN, LILIANE Jaimes DETAILED VOICEMAIL LEFT. AWAITING CALL BACK.
--- NOTE | 2020-01-18 15:06 | NUR ---
RECEIVED CALL BACK FROM MD MOCTEZUMA. MD AWARE OF TRANSFER STATUS AND NEW ORDERS HAVE BEEN RECEIVED, READ BACK AND VERIFIED. WILL IMPLEMENT.
--- NOTE | 2020-01-18 15:24 | NUR ---
PER CREDIT REFERENCE CLERK, [facility] REQUESTING PHYSICAL THERAPY RE EVALUATION. ORDER ENTERED STAT.
--- NOTE | 2020-01-18 15:29 | NUR ---
D/C Planning Per SS consult for SNF Placement. Faxed clinical information to health plan on 01/17/2020. Placed called to [employer] at 12:14 and 13:39 and left voicemail regarding patient. Placed a called to Drake with [facility] rehab in [place] Ph:). Per Drake with [facility] rehab they are willing to accept patient however, they will need two (-) COVID-19 test within 24 of each other. Informed PRADIP Harper. Per PRADIP Harper they will test and second result should be completed by 14:00 tomorrow Wednesday. Will follow up with Drake once results are completed.
--- NOTE | 2020-01-18 15:40 | NUR ---
COVID SWAB #1 COLLECTED AND WALKED DOWN TO LABORATORY PER ORDER.
[2020-01-18 16:48] VITALS: BP 110/56
[2020-01-18 22:00] VITALS: BP 108/50
[2020-01-19] MEDS: MORPHINE SULF INJ 2 MG/ML SYRINGE 1ML IV PRN ×6 (00:40→18:33)
[2020-01-19 05:00] VITALS: BP 124/48
--- NOTE | 2020-01-19 08:32 | NUR ---
CALLED LAB FOR COVID SWAB, THEY SAID RESULTS SHOULD BE READY BY 1600 ONCE SENT. PT REPORTS 8/ PAIN LEFT LEG, WILL GIVE PAIN MEDS. PT DID NOT RECEIVE BREAKFAST TRAY, CALLED [facility]UTR[facility] TO SEND.
[2020-01-19 09:00] VITALS: BP_SYST 104; BP_SYST 96; BP_DIAS 53; BP_DIAS 61
--- NOTE | 2020-01-19 09:39 | NUR ---
SECOND COVID SAMPLE SENT TO LAB, JAY BRASWELL WALKED SAMPLE DOWN PER PROTOCOL.
[2020-01-19] MEDS: ATENOLOL 50 MG TAB PO SCH (10:00)
[2020-01-19] MEDS: PARoxetine 20 MG TAB PO SCH (10:10)
[2020-01-19] MEDS: ENOXAPARIN SOD 40 MG/0.4 ML SYRINGE SC SCH (10:11)
[2020-01-19] MEDS: levoFLOXacin 500 MG TAB PO SCH (10:11)
[2020-01-19] MEDS: amLODIPine BESYLATE 5 MG TAB PO SCH (10:11)
[2020-01-19] MEDS: ALLOPURINOL 100 MG TAB PO SCH (10:12)
--- NOTE | 2020-01-19 11:24 | NUR ---
Spoke with Dr Andrea. reports he wants the second Covid sample sent at 1600 and to cancel the one sent earlier. Called lab, sample this morning cancelled. Dr Andrea saw patient and discussed POC, patient verbalized understanding, patient is to transfer to SNF once Covid test results are back.
--- NOTE | 2020-01-19 11:31 | NUR ---
NOTIFIED DR RHIANNA LLOYD MD AWARE.
--- NOTE | 2020-01-19 12:28 | NUR ---
Dr Todd saw patient. reports he is going to do blood work to check for liver disease and he will order an ultrasound. He also reports pt may need a liver biopsy and to call family and see if patient still takes Eliquis. Addendum: 01/19/20 at 1254 by PB TOMLINSON RN WRONG PATIENT
[2020-01-19 13:00] VITALS: BP 122/77
--- NOTE | 2020-01-19 13:28 | NUR ---
DR ARSHAD AND DR PARHAM SAW PATIENT AND DISCUSSED POC. DR ARSHAD REPORTS HE WILL CALL PT FAMILY AND TO CALL PHYSICAL THERAPY. Addendum: 01/19/20 at 1330 by PB TOMLINSON RN WRONG PATIENT
--- NOTE | 2020-01-19 16:03 | NUR ---
SECOND COVID SAMPLE WALKED TO LAB PER PROTOCOL.
--- NOTE | 2020-01-19 20:40 | NUR ---
Assumed care of patient Received report from Felicia MOSELEY. At this time patient has no s/s of distress or SOB. Will continue to monitor Q1 and PRN. Addendum: 01/20/20 at 0055 by Alize Escamilla RN TIME 543
[2020-01-19 22:00] VITALS: BP_SYST 114; BP_SYST 138; BP_DIAS 57; BP_DIAS 66
[2020-01-20] VITALS (7 sets, daily range): BP systolic 99–126; BP diastolic 52–67
[2020-01-20] MEDS: MORPHINE SULF INJ 2 MG/ML SYRINGE 1ML IV PRN ×3 (00:08→20:01)
[2020-01-20] MEDS: TEMAZEPAM 15 MG CAP PO PRN ×2 (00:18→23:49)
--- NOTE | 2020-01-20 07:40 | NUR ---
OPENING SHIFT NOTE: PATIENT RESTING IN BED AWAKE WITH RESPIRATIONS EVEN AND UNLABORED. A/OX4. DRESSING TO LEFT KNEE CDI, MINIMAL YELLOW DRAINAGE NOTED. UPDATED ON PLAN OF CARE,PATIENT VERBALIZED UNDERSTANDING. PATIENT REPORTING HAVING A GOOD NIGHTS REST. CALL LIGHT WITHIN REACH, BED ALARM ON AND IN PLACE. WILL CONTINUE TO MONITOR.
[2020-01-20] MEDS: HYDROcodone-ACET 7.5/325MG TAB PO PRN (10:00)
[2020-01-20] MEDS: ALLOPURINOL 100 MG TAB PO SCH (10:01)
[2020-01-20] MEDS: levoFLOXacin 500 MG TAB PO SCH (10:01)
[2020-01-20] MEDS: PARoxetine 20 MG TAB PO SCH (10:01)
[2020-01-20] MEDS: ENOXAPARIN SOD 40 MG/0.4 ML SYRINGE SC SCH (10:02)
[2020-01-20] MEDS: amLODIPine BESYLATE 5 MG TAB PO SCH (10:02)
[2020-01-20] MEDS: ATENOLOL 50 MG TAB PO SCH (10:03)
--- NOTE | 2020-01-20 10:29 | NUR ---
MD VARGAS AT BEDSIDE.
--- NOTE | 2020-01-20 10:37 | NUR ---
SECOND COVID SAMPLE: LAB CALLED TO ENSURE SECOND COVID SAMPLE WAS RECEIVED AND IN PROCESS. HOST COORDINATOR VERIFIED RECEIVING AND IS BEING PROCESSED FROM 0800 BATCH.
--- NOTE | 2020-01-20 18:54 | NUR ---
CARE ENDORSED TO DANIEL MOSELEY.
--- NOTE | 2020-01-20 20:00 | NUR ---
PT AWAKE ALERT X 3;UTILIZING BEDPAN FOR URINATION;CALL LIGHT IN REACH,NO DISTRESS.WILL CONTINUE TO MONITOR.
[2020-01-21 05:00] VITALS: BP 111/67
[2020-01-21] MEDS: MORPHINE SULF INJ 2 MG/ML SYRINGE 1ML IV PRN ×4 (05:54→22:46)
--- NOTE | 2020-01-21 07:37 | NUR ---
CARE ENDORSED TO CHRISTINA MOSELEY.
--- NOTE | 2020-01-21 07:49 | NUR ---
OPENING SHIFT NOTE: PATIENT RESTING IN BED AWAKE WITH RESPIRATIONS EVEN AND UNLABORED. A/OX4. DRESSING TO LEFT KNEE CDI. UPDATED ON PLAN OF CARE, PATIENT VERBALIZED UNDERSTANDING. CALL LIGHT WITHIN REACH, BED ALARM ON AND IN PLACE. WILL CONTINUE TO MONITOR.
[2020-01-21 08:41] VITALS: BP 91/49
[2020-01-21] MEDS: PARoxetine 20 MG TAB PO SCH (09:11)
[2020-01-21] MEDS: levoFLOXacin 500 MG TAB PO SCH (09:11)
[2020-01-21] MEDS: ENOXAPARIN SOD 40 MG/0.4 ML SYRINGE SC SCH (09:12)
[2020-01-21] MEDS: ATENOLOL 50 MG TAB PO SCH (09:12)
[2020-01-21] MEDS: amLODIPine BESYLATE 5 MG TAB PO SCH (09:12)
[2020-01-21] MEDS: ALLOPURINOL 100 MG TAB PO SCH (09:12)
[2020-01-21] MEDS: ACETAMINOPHEN 325 MG TAB PO PRN (09:13)
--- NOTE | 2020-01-21 09:37 | NUR ---
PAGE MADE TO LIFE SKILLS EDUCATOR VIDEO SPECIALIST FOR UPDATES ON SNF TRANSFER NOW THAT SECOND COVID SWAB HAS COME BACK NEGATIVE.
--- NOTE | 2020-01-21 09:46 | NUR ---
CALL FROM CLARE CONCESSION SUPERVISOR SS: AUDRA WITH [facility] PHONE NUMBER GIVEN [phone]. VOICEMAIL LEFT FOR AUDRA REGARDING SECOND RESULT AND CALL BACK NUMBER.
[2020-01-21 13:00] VITALS: BP 95/48
[2020-01-21 14:15] LABS: Eosinophils # (auto) 0 10 ^3/uL (0-0.8); Monocytes # (auto) 1.2 10 ^3/uL (0-1.3); Monocytes % (auto) 10.9 % (0.0-12.0); Platelet Count (auto) 511 10^3/uL (140-450)
[2020-01-21 14:17] LABS: Basophils # (auto) 0.1 10 ^3/uL (0-0.2); Basophils % (auto) 1.2 % (0.0-2.0); Eosinophils % (auto) 0.2 % (0.0-7.0); Hematocrit 26.2 % (36.0-46.0); Hemoglobin 8.7 g/dL (12.2-16.2); Lymphocytes # (auto) 1.7 10 ^3/uL (0.4-5.4); Lymphocytes % (auto) 16.5 % (10.0-50.0); Mean Corpuscular Hemoglobin 28.1 pg (28.0-32.0); Mean Corpuscular Hgb Conc. 33.3 g/dL (32.0-36.0); Mean Corpuscular Volume 84.5 fL (80.0-100.0); Neutrophils # (auto) 7.5 10 ^3/uL (1.6-8.6); Neutrophils % (auto) 71.2 % (37.0-80.0); Red Cell Distribution Width 16.8 % (11.8-14.3); White Blood Cell 10.5 10^3/uL (4.4-10.8)
[2020-01-21 14:27] LABS: INR 1.22 (0.9-1.15)
[2020-01-21 14:30] LABS: Albumin 1.7 g/dL (3.4-5.0); Calcium 8.7 mg/dL (8.5-10.1); Potassium 4.3 mmol/L (3.5-5.1)
[2020-01-21 14:34] LABS: BUN/Creatinine Ratio 22.8; Bilirubin, Total 0.3 mg/dL (0.2-1.0); Total Protein 7.4 g/dL (6.4-8.2)
[2020-01-21 16:52] VITALS: BP 100/55
--- NOTE | 2020-01-21 17:21 | NUR ---
CONSENTS: PATIENT SIGNED CONSENTS FOR PROCEDURE AND PLACED IN THE HARD CHART.
--- NOTE | 2020-01-21 19:29 | NUR ---
CARE ENDORSED TO DIAMOND MOSELEY.
--- NOTE | 2020-01-21 19:50 | NUR ---
Opening Shift Note Assumed care of patient, awake and alert oriented x4. No S/S of distress/SOB noted. Instructed on POC and to call for assist PRN. Bed is in lowest locked position with bed rails up x2 and call light is within reach of the patient.
[2020-01-21 21:00] VITALS: BP 106/57
--- NOTE | 2020-01-21 21:45 | NUR ---
Difficulty with obtaining IV, Hospitalist paged: Difficulties attempting to start an IV. 3 attempts done on Day shift, 2 attempts from night charge nurse. A 24 gauge IV obtained, patient is a difficult stick. To page hospitalist to request midline placement for patient for procedure.
--- NOTE | 2020-01-21 22:05 | NUR ---
Hospitalist paged: Hospitalist paged at this time regarding request for midline. Patient is a difficult stick. Waiting for call back.
--- NOTE | 2020-01-21 22:28 | NUR ---
HOSPITALIST CALLED BACK: Notified hospitalist jw that patient is a hard stick after 6 attempts and notified that patient will have procedure tomorrow. Ordered for a midline to be placed. To place orders.
[2020-01-21] MEDS: TEMAZEPAM 15 MG CAP PO PRN (23:23)
[2020-01-22] MEDS: MORPHINE SULF INJ 2 MG/ML SYRINGE 1ML IV PRN ×6 (04:25→22:50)
[2020-01-22 05:00] VITALS: BP_SYST 108; BP_SYST 136; BP_SYST 154; BP_DIAS 60; BP_DIAS 63; BP_DIAS 68
--- NOTE | 2020-01-22 05:07 | NUR ---
CHG BATH DONE: CHG bath done for procedure, linens gown and blankets changed. Patient tolerated well. No s/s of distress SOB noted.
--- NOTE | 2020-01-22 07:34 | NUR ---
PREOP CALL RN to have patient down in preop at 0830, for procedure scheduled at [address] Diaz.
--- NOTE | 2020-01-22 08:00 | NUR ---
PAGE TO PICC LINE RN IN REGARDS OF MIDLINE PLACEMENT ORDER FOR PROCEDURE. AWAITING CALL BACK.
--- NOTE | 2020-01-22 08:10 | NUR ---
CALL TO PREOP TO INFORM OF AWAITING MIDLINE PLACEMENT. WILL CALL BACK ONCE MIDLINE PLACEMENT DONE TO PROCEED WITH PROCEDURE.
[2020-01-22 09:00] VITALS: BP 108/55
--- NOTE | 2020-01-22 09:55 | NUR ---
PICC LINE RN AT BED SIDE TO OBTAIN IV ACCESS.
[2020-01-22] MEDS: levoFLOXacin 500 MG TAB PO SCH (09:59)
[2020-01-22] MEDS: PARoxetine 20 MG TAB PO SCH (09:59)
[2020-01-22] MEDS: amLODIPine BESYLATE 5 MG TAB PO SCH (09:59)
[2020-01-22] MEDS: ATENOLOL 50 MG TAB PO SCH (10:00)
[2020-01-22] MEDS: ALLOPURINOL 100 MG TAB PO SCH (10:00)
[2020-01-22] MEDS: ENOXAPARIN SOD 40 MG/0.4 ML SYRINGE SC SCH (10:00)
--- NOTE | 2020-01-22 10:00 | NUR ---
LEFT UPPER ARM 20G ACCESS OBTAINED BY POLLO MOSELEY. WILL INFORM OR.
--- NOTE | 2020-01-22 10:02 | NUR ---
PER DODIE MOSELEY, DR VARGAS HAD TO LEAVE FACILITY, WILL RE SCHEDULE PROCEDURE FOR APPROXIMATELY 1330.
--- NOTE | 2020-01-22 10:29 | NUR ---
1020 01/22/20 I contacted [facility] [employer] W[employer] Officer Unique [phone] asking for [facility]. Per Unique-she is going to check something and give me a call back.
--- NOTE | 2020-01-22 10:38 | NUR ---
I received a call from Unique at [facility] [phone]-she said prior authorization is not needed for SNF at this time, they would pay the facility Medicare rates. If the facility wants an JORGE LUIS, they need to fax request to [phone] or email to [email or web address]. I called Erin with [facility] [phone] and let her know, provided her with contact information for Unique.
--- NOTE | 2020-01-22 11:46 | NUR ---
Pt dominique Diaz this morning. Signed: 01/22/20 at 1147 by ALVARO BROOKS PTT <Co-Signature Required> Co-Signed: 01/22/20 at 1147 by Jay Suarez PT Addendum: 01/22/20 at 1147 by ALVARO BROOKS PTT Amended: Links added.
[2020-01-22 13:00] VITALS: BP 106/63
--- NOTE | 2020-01-22 13:52 | NUR ---
Patient off unit to PREOP.
--- NOTE | 2020-01-22 14:45 | NUR ---
Patient back in room. Procedure rescheduled for 01/21.
--- NOTE | 2020-01-22 16:28 | NUR ---
D/C Planning Placed followed up called to Drake with [facility]. Drake advised me patient health plan is requesting updated physical therapy notes. Faxed physical therapy notes from 01/20/2020. Per Drake she will follow up with me in the morning.
[2020-01-22 17:00] VITALS: BP 124/65
[2020-01-22 22:00] VITALS: BP 135/66
[2020-01-22] MEDS: TEMAZEPAM 15 MG CAP PO PRN (23:27)
[2020-01-23] VITALS (9 sets, daily range): BP systolic 104–134; BP diastolic 55–68
[2020-01-23] MEDS: MORPHINE SULF INJ 2 MG/ML SYRINGE 1ML IV PRN ×2 (05:15→09:45)
--- NOTE | 2020-01-23 05:28 | NUR ---
CHG BATH DONE: CHG bath done for procedure, linens gown and blankets changed. Patient tolerated well. No s/s of distress SOB noted.
--- NOTE | 2020-01-23 09:21 | NUR ---
D/C Planning Advised Jay with physical therapy to see patient progress.
[2020-01-23] MEDS: amLODIPine BESYLATE 5 MG TAB PO SCH (10:00)
[2020-01-23] MEDS: ATENOLOL 50 MG TAB PO SCH (10:00)
--- NOTE | 2020-01-23 10:48 | NUR ---
Patient taken down to OR for procedure.
[2020-01-23] MEDS ORDERED: fentaNYL CITRATE 100 MCG/2 ML VL ONE (11:27)
[2020-01-23] MEDS ORDERED: MIDAZOLAM HCL 1MG/1ML-2 ML VIAL ONE (11:27)
[2020-01-23] MEDS ORDERED: MEPERIDINE HCL (50 MG/ML) 1 ML VIAL ONE (11:27)
--- NOTE | 2020-01-23 11:28 | NUR ---
D/C Planning Received followed up called from Drake julio [place] [facility] advising me patient health plan is not willing to provided a hard copy authorization therefore, they are unable to accept patient at this time. WILSON Morris provided me with a list. [facility], [facility], [facility] and [facility] are not contracted with patient health plan. Faxed clinical information to [facility], [facility], and [facility] who are contracted with patient Health Plan. Pending acceptance.
[2020-01-23] MEDS ORDERED: PHENYLEPHRINE HCL 10 MG/ML VL IV ONE (11:29)
--- NOTE | 2020-01-23 11:30 | NUR ---
PATIENT DOWN A OR. Addendum: 01/23/20 at 1424 by ALEX CASTANEDA RN RN Amended: Abner added. Addendum: 01/23/20 at 1424 by ALEX CASTANEDA RN RN Amended: Abner added.
[2020-01-23] MEDS ORDERED: DexAMETHasone SOD PHOS 10MG/1ML VIAL INJ ONE (11:46)
[2020-01-23] MEDS ORDERED: PROPOFOL 10 MG/ML 20 ML IV ONE (11:53)
[2020-01-23] MEDS ORDERED: CLINDAMYCIN 600MG IV 50 ML IV ONE (12:06)
[2020-01-23] MEDS ORDERED: MIDAZOLAM HCL 1MG/1ML-2 ML VIAL IV PRN (12:30)
[2020-01-23] MEDS ORDERED: LABETALOL HCL 5 MG/ML 4ML SYRINGE IV PRN (12:30)
[2020-01-23] MEDS ORDERED: MORPHINE SULFATE 4 MG/ML SYR/VIAL IV PRN (12:30)
[2020-01-23] MEDS ORDERED: ePHEDrine SULFATE 50 MG/ML AMP IV PRN (12:30)
[2020-01-23] MEDS ORDERED: HYDROmorphone HCL 2 MG/ML VL IV PRN (12:30)
[2020-01-23] MEDS ORDERED: ONDANSETRON HCL 4 MG/2 ML VIAL IV PRN (12:30)
--- NOTE | 2020-01-23 13:30 | NUR ---
pATIENT DOWN AT OR. Addendum: 01/23/20 at 1425 by ALEX CASTANEDA RN RN Amended: Links added.
--- NOTE | 2020-01-23 15:03 | NUR ---
PATIENT REFUSED PT FIRST VISIT THIS MORNING SAYING "SHE COULDN'T GET UP BECAUSE HER HANDS HURT TOO MUCH" PATIENT AGREED TO TRY LATER IN THE DAY BUT WHEN PT WENT BACK PATIENT WAS HAVING PROCEDURE. Addendum: 01/23/20 at 1504 by ZEN SNELL PTT Amended: Links added.
--- NOTE | 2020-01-23 15:17 | NUR ---
Patient back from OR report received from ELECTRIC SWITCH TESTERPRADIP Aceves. Patient resting in bed with eyes closed. No S/S of distress noted.
--- NOTE | 2020-01-23 16:03 | NUR ---
D/C Planning Per representatives with [facility], [facility], and [facility] they do not have female beds. Per Beth with [facility] she will verify patient insurance and will follow up with me if they are able to accept patient.
[2020-01-23] MEDS: ALLOPURINOL 100 MG TAB PO SCH (17:24)
[2020-01-23] MEDS: PARoxetine 20 MG TAB PO SCH (17:24)
[2020-01-23] MEDS: levoFLOXacin 500 MG TAB PO SCH (17:25)
--- NOTE | 2020-01-24 00:05 | NUR ---
PAIN PT C/O 8/10 LEFT KNEE PAIN. REQUESTING PAIN MEDICATION. PATIENT WAS ON MORPHINE 1MG EVERY 2 HRS FOR SEVERE PAIN BUT ORDER . PATIENT HOSPITALIST FOR ORDERS
[2020-01-24] MEDS: MORPHINE SULF INJ 2 MG/ML SYRINGE 1ML IV PRN ×6 (00:25→23:49)
[2020-01-24 05:00] VITALS: BP 120/62
[2020-01-24 05:49] LABS: Hemoglobin 7.5 g/dL (12.2-16.2)
[2020-01-24 09:00] VITALS: BP 97/55
[2020-01-24] MEDS: ATENOLOL 50 MG TAB PO SCH (10:00)
[2020-01-24] MEDS: ENOXAPARIN SOD 40 MG/0.4 ML SYRINGE SC SCH ×2 (10:00→10:33)
[2020-01-24] MEDS: amLODIPine BESYLATE 5 MG TAB PO SCH (10:00)
[2020-01-24] MEDS: ALLOPURINOL 100 MG TAB PO SCH (10:34)
[2020-01-24] MEDS: levoFLOXacin 500 MG TAB PO SCH (10:34)
[2020-01-24] MEDS: PARoxetine 20 MG TAB PO SCH (10:34)
--- NOTE | 2020-01-24 11:00 | NUR ---
Doctor Andrea informed that lovenox was held for hgb 7.5. Per Okay to hold lovenox.
[2020-01-24 13:00] VITALS: BP 103/68
--- NOTE | 2020-01-24 13:21 | NUR ---
PATIENT REFUSED TO DO PT. PATIENT SAID SHE COULDN'T DO PT OR EVEN TRY TO STAND BECAUSE OF PAIN IN HER HANDS. PRADIP JOHNSON WAS NOTIFIED. Addendum: 01/24/20 at 1324 by ZEN SNELL PTT Amended: Links added.
[2020-01-24 16:44] VITALS: BP 105/65
--- NOTE | 2020-01-24 19:08 | NUR ---
OPENING SHIFT NOTE: ASSUMED CARE OF PATIENT. PATIENT IS AWAKE, ALERT AND ORIENTED X 4. NO S/S OF SOB OR DISTRESS, PATIENT STATES SHE HAS LEFT KNEE PAIN 5/10, WILL MEDICATE FOR PAIN. BED IS LOW, LOCKED, TWO SIDE RAILS RAISED, AND CALL HER WITHIN REACH. INSTRUCTED ON POC AND ENCOURAGED PATIENT TO CALL FOR ASSISTANCE, PATIENT VERBALIZES UNDERSTANDING. WILL CONTINUE TO MONITOR FOR CHANGES Q1 HR AND PRN.
--- NOTE | 2020-01-24 19:35 | NUR ---
IV REMOVAL: LEFT FOREARM IV INFILTRATED. IV REMOVED, CATHETER TIP INTACT AND PRESSURE DRESSING APPLIED. PATIENT TOLERATED WELL.
[2020-01-24 20:00] VITALS: BP 106/56
[2020-01-24] MEDS: TEMAZEPAM 15 MG CAP PO PRN (21:38)
[2020-01-24 22:00] VITALS: BP 106/56
--- NOTE | 2020-01-25 03:00 | NUR ---
CARE ENDORSED TO ALYCIA MOSELEY.
--- NOTE | 2020-01-25 03:05 | NUR ---
Report received from Carrie MOSELEY. Patient is on room air. Respirations even and unlabored. Patient has no S/S of distress/SOB or pain at this time.
[2020-01-25] MEDS: MORPHINE SULF INJ 2 MG/ML SYRINGE 1ML IV PRN ×3 (03:59→21:17)
--- NOTE | 2020-01-25 04:00 | NUR ---
SCD placed back on patient's right leg. Patient educated on purpose of SCD to reduce risk of blood clot. Patient verbalized understanding.
[2020-01-25 04:30] VITALS: BP 122/57
[2020-01-25 05:44] LABS: Hematocrit 24.9 % (36.0-46.0); Hemoglobin 7.7 g/dL (12.2-16.2)
--- NOTE | 2020-01-25 07:00 | NUR ---
CLOSING NOTE Patient is on room air. Respirations even and unlabored. Patient has no S/S of distress/SOB or pain. Dressing to left knee is clean, dry, and intact. SCD is on right leg.
[2020-01-25 09:37] VITALS: BP 111/64
[2020-01-25] MEDS: amLODIPine BESYLATE 5 MG TAB PO SCH (09:48)
[2020-01-25] MEDS: PARoxetine 20 MG TAB PO SCH (09:48)
[2020-01-25] MEDS: levoFLOXacin 500 MG TAB PO SCH (09:48)
[2020-01-25] MEDS: ALLOPURINOL 100 MG TAB PO SCH (09:48)
[2020-01-25] MEDS: ENOXAPARIN SOD 40 MG/0.4 ML SYRINGE SC SCH (09:49)
[2020-01-25] MEDS: ATENOLOL 50 MG TAB PO SCH (10:00)
--- NOTE | 2020-01-25 11:32 | NUR ---
D/C Planning Received call from Beth with [facility] informing me she has not been able to get in contact with patient health plan to verify eligibility. WILSON Morris advised me patient will need a new physical therapy evaluation since she has been refusing physical therapy. Informed PRADIP Roland
--- NOTE | 2020-01-25 12:00 | NUR ---
WOUND CARE NOTE: IN TO SEE PATIENT AT THIS TIME FOR SKIN INTEGRITY MONITORING PATIENT HAS CURRENT TARUN SCORE OF 17. PATIENT HAS HAD RECENT SURGERY WITH DR. VARGAS ON HER LEFT KNEE. POST SURGICAL DRESSING IS CDI. PATIENT IS ABLE TO ASSIST WITH HER TURNING/REPOSITIONING. SACRUM/BUTTOCK SKIN IS NOW PINK, BLANCHABLE, NO MASD NOTED AT THIS TIME, NO OPEN WOUNDS NOTED. BILATERAL FEET/HEEL SKIN IS BLANCHABLE. NO OTHER SKIN INTEGRITY ISSUES SEEN AT THIS TIME. RECOMMEND: CONTINUATION WITH ALL WOUND CARE ORDERS PREVIOUSLY PRESCRIBED BY . WOUND CARE TEAM WILL CONTINUE TO MONITOR.
[2020-01-25 14:07] VITALS: BP 108/66
[2020-01-25 16:37] VITALS: BP 103/61
--- NOTE | 2020-01-25 18:00 | NUR ---
blood transfusion After verifying all patient blood info, went to spike blood bag the bag had ripped and blood started to leak out. I bag the blood and returned it to lab patient did not receive any blood. tried to end blood transfusion info on transfusion documentation pressed started and end to exit current transfusion. Spoke with Lab and blood bank per lab I have to reorder the new unit of blood.Will order new unit of blood.
--- NOTE | 2020-01-25 19:29 | NUR ---
Opening Shift Note Received report and assumed care of patient. Patient is awake and alert. No signs or symptoms of distress noted. Instructed patient on plan of care and to call for assistance as needed. Will continue to monitor.
[2020-01-25 21:00] VITALS: BP 102/73
[2020-01-26] VITALS (11 sets, daily range): BP systolic 103–138; BP diastolic 48–68
[2020-01-26] MEDS: MORPHINE SULF INJ 2 MG/ML SYRINGE 1ML IV PRN ×3 (00:31→10:45)
--- NOTE | 2020-01-26 02:12 | NUR ---
IV removal/insertion 20g IV to the Left upper arm leaking. Discontinued IV with clean technique, catheter tip fully intact. Pressure dressing applied to site. NOTE: Inserted 22g IV to the Right hand. Patient tolerated procedure well.
--- NOTE | 2020-01-26 05:56 | NUR ---
Blood Transfusion Blood transfusion completed at 0456. Vital signs documented. No signs or symptoms of distress noted. Will continue to monitor.
[2020-01-26 07:22] LABS: Hematocrit 26.8 % (36.0-46.0); Hemoglobin 8.7 g/dL (12.2-16.2)
[2020-01-26] MEDS: ATENOLOL 50 MG TAB PO SCH (10:19)
[2020-01-26] MEDS: PARoxetine 20 MG TAB PO SCH (10:19)
[2020-01-26] MEDS: ALLOPURINOL 100 MG TAB PO SCH (10:19)
[2020-01-26] MEDS: levoFLOXacin 500 MG TAB PO SCH (10:20)
[2020-01-26] MEDS: amLODIPine BESYLATE 5 MG TAB PO SCH (10:20)
[2020-01-26] MEDS: ENOXAPARIN SOD 40 MG/0.4 ML SYRINGE SC SCH (10:20)
--- NOTE | 2020-01-26 11:00 | NUR ---
Spoke to patient regarding she is being d/c home with HH, patient stated she does not have a ride, offer her a taxi voucher. She also stated she lives a lone no one can take her inside the house. Called [facility] stated we can set up transportation, but patient have to pay out of the pocket. Patient refused to pay and she will call her insurance. CN informed.
--- NOTE | 2020-01-26 11:29 | NUR ---
1130 01/26/20 I contacted [facility] Training Director Sonia and Unique to request that authorization be provided for inpatient stay as well as asking for authorization for SNF. Unable to reach case specialist after 2 phone call attempts. Provided message stating the above on voicemail at [phone] (Sonia) and [phone] (Unique). Faxed Notice Regarding lack of adequate network for post discharge care-document scanned into [employer]. I left message stating that we have a facility willing to accept patient, but they are requesting to speak with Training Director at [facility] and have been unable to get a hold of her.
--- NOTE | 2020-01-26 11:44 | NUR ---
D/C Planning , Dr. Andrea advised me he spoke to patient at bedside and she is agreeing to go home with home health for physical therapy. Re-fax clinical information to [facility] ) who is contracted with patient plan and had already accepted. Per José Miguel with [facility] patient has been accepted and they will see patient within 24-48hrs upon d/c day. Informed PRADIP Pabon.
--- NOTE | 2020-01-26 11:51 | NUR ---
Spoke to Dr. Andrea regarding last BM 01/20, received new orders , noted and carried it out.
[2020-01-26] MEDS ORDERED: MILK OF MAGNESIA 30ML SUSP PO ONE (12:00)
--- NOTE | 2020-01-26 15:40 | NUR ---
Nutrition Followup Notes Pt wt is 74.2 kg Pt appetite is good aeb ave 90% x5 PO intake per RN doc. Pt with no noted distress except continued constipation, no complaints. Will continue to monitor PO status, skin status, pertinent labs and weight trends. Will f/u in 3 to 5 days. Est energy needs: 5964-7607 kcals (20-23 kcal/kgBW) Est protein needs: 75-82 gms/day (1.0-1.1 gm/kgBW) Will continue to monitor and reassess prn. LABS: BUN 26 H, CR 1.14 H, GFR 49 L, AST 72 H, ALT 77 H, ALK PHOS 230 H, ALB 1.7 L GI: Last BM noted on 01/18/20, pt with BM every 5-7 days, currently constipated per RN doc. BS: 19 mod risk, please refer to wound assessment report for full details. PES: Problem Altered nutrition related lab values r/t current medical condition aeb hyperchloremia, hyperglycemia, hypoalbuminemia, elev LFTs, elev Alk Phos Comments Will continue to monitor NPO status, skin status, pertinent labs and weight trends. Will f/u in 3 to 5 days. 1) Continue to monitor pt PO intake to meet at least 75% of meals 2) If albumin continues trending down consider Prostat 1 pkt BID 3) Continue current plan of care
--- NOTE | 2020-01-26 17:26 | NUR ---
D/C Planning Received a call from Pino with [facility]:( [phone]) requesting information regarding patient. Refer him to SHRUTI Barclay. Per [facility] health plan will work on authorization for SNF within 24-48hrs. Placed call to Beth with [facility]:) advising me Pino with [facility] PPO contact her and will provide authorization tomorrow Wednesday. Per Beth they will accept patient tomorrow Wednesday. Will informed [employer] Director SHRUTI Barclay.
--- NOTE | 2020-01-26 17:55 | NUR ---
Patient agrees to set up transportation and made aware that she has to pay out of the pocket. MARIPOSA Ledezma crime prevention worker paged. Awaiting to call back.
--- NOTE | 2020-01-26 18:36 | NUR ---
Spoke to Greg MONGE regarding patient situation, per Greg patient insurance is going to get Auth and patient can transfer to SNF. Dr. Andrea paged.
--- NOTE | 2020-01-26 18:36 | NUR ---
Spoke to Greg MONGE regarding patient situation
--- NOTE | 2020-01-26 18:37 | NUR ---
Received call from Ben #[phone] (SNF document imaging manager) in [facility] stated patient got accepted and wait for insurance to give Auth tomorrow.
--- NOTE | 2020-01-26 19:30 | NUR ---
Opening Shift Note Received report and assumed care of patient. Patient is in bed asleep/drowsy. No signs or symptoms of distress noted. Instructed patient on plan of care and to call for assistance as needed. Call light within reach. Will continue to monitor. Addendum: 01/27/20 at 0028 by Donna Aarna RN RN per day shift, waiting for d/c d/t insurance auth pending. charge entry notified.
[2020-01-27 05:00] VITALS: BP 116/55
--- NOTE | 2020-01-27 06:35 | NUR ---
CLOSING NOTE PT. IS ASLEEP SUPINE IN BED. NO DISTRESS. ENDORSED TO DAY RN.
[2020-01-27 09:00] VITALS: BP 125/62
[2020-01-27] MEDS: ENOXAPARIN SOD 40 MG/0.4 ML SYRINGE SC SCH (09:46)
[2020-01-27] MEDS: levoFLOXacin 500 MG TAB PO SCH (09:46)
[2020-01-27] MEDS: ALLOPURINOL 100 MG TAB PO SCH (09:46)
[2020-01-27] MEDS: PARoxetine 20 MG TAB PO SCH (09:46)
[2020-01-27] MEDS: amLODIPine BESYLATE 5 MG TAB PO SCH (09:47)
[2020-01-27] MEDS: ATENOLOL 50 MG TAB PO SCH (09:47)
--- NOTE | 2020-01-27 09:51 | NUR ---
Spoke to Greg MONGE, will get back when everything is set up.
[2020-01-27] MEDS: MORPHINE SULF INJ 2 MG/ML SYRINGE 1ML IV PRN ×3 (10:00→19:51)
[2020-01-27] MEDS: ONDANSETRON HCL 4 MG/2 ML VIAL IV PRN ×2 (10:00→14:46)
[2020-01-27 13:00] VITALS: BP 107/69
--- NOTE | 2020-01-27 16:09 | NUR ---
Received a call from Greg MONGE stated still wait for Authorization and will call back when receive.
[2020-01-27 17:00] VITALS: BP 104/65
--- NOTE | 2020-01-27 19:45 | NUR ---
OPENING NOTE RN ENDORSED PT. CARE. PT. AWAKE AND IN BED. SHE REPORTS PAIN AT 7-8 IN LEFT KNEE. ALSO SAYS SHE WANTS TO GO TO [facility] AND IS "FED UP" WITH THE "[facility] AND FOR[facility]". PT. OFFERED PAIN MEDICATION TO HELP WITH KNEE PAIN AND WILL GIVE SHANNAN. PT. MADE AWARE OF BOTTLENECK WITH HER TRANSFER D/T INSURANCE. PT. UNDERSTANDS. WILL CONTINUE TO MONITOR.
[2020-01-27 22:00] VITALS: BP 106/59
[2020-01-28 04:05] VITALS: BP 112/57
--- NOTE | 2020-01-28 07:30 | NUR ---
Opening Shift Note RECEIVED REPORT FROM NOC RN. Assumed care of patient, awake and alert. No S/S of distress/SOB or pain. BED IN LOWEST, LOCKED POSITION WITH SIDERAILS UP x2 AND CALL LIGHT WITHIN REACH. Instructed on POC and to call for assist PRN, will continue to monitor for changes Q1hr and PRN.
[2020-01-28 09:00] VITALS: BP 116/67
[2020-01-28] MEDS: PARoxetine 20 MG TAB PO SCH (10:53)
[2020-01-28] MEDS: ATENOLOL 50 MG TAB PO SCH (10:53)
[2020-01-28] MEDS: amLODIPine BESYLATE 5 MG TAB PO SCH (10:53)
[2020-01-28] MEDS: levoFLOXacin 500 MG TAB PO SCH (10:53)
[2020-01-28] MEDS: ENOXAPARIN SOD 40 MG/0.4 ML SYRINGE SC SCH (10:54)
[2020-01-28] MEDS: MORPHINE SULF INJ 2 MG/ML SYRINGE 1ML IV PRN ×3 (10:54→23:54)
[2020-01-28] MEDS: ALLOPURINOL 100 MG TAB PO SCH (10:54)
[2020-01-28 13:00] VITALS: BP 97/53
[2020-01-28 17:09] VITALS: BP 98/58
--- NOTE | 2020-01-28 19:15 | NUR ---
Opening Shift Note Received report from shira Browne RN. Assumed care of patient, awake and alert. No S/S of distress/SOB or pain. Instructed on POC and to call for assist PRN, will continue to monitor for changes Q1hr and PRN. Bed placed in lowest position, bed alarm turned on and call light within reach.
[2020-01-28 22:00] VITALS: BP 98/47
--- NOTE | 2020-01-28 23:54 | NUR ---
Patient given morphine for left knee pain of 8/10. Will monitor.
--- NOTE | 2020-01-29 03:13 | NUR ---
Patient is resting in bed with eyes closed, no distress noted with even and unlabored respirations saturating at 95% on room air. Will monitor
[2020-01-29 05:00] VITALS: BP 122/62
[2020-01-29 09:00] VITALS: BP_SYST 117; BP_SYST 139; BP_DIAS 56; BP_DIAS 62
[2020-01-29] MEDS: levoFLOXacin 500 MG TAB PO SCH (09:54)
[2020-01-29] MEDS: PARoxetine 20 MG TAB PO SCH (09:54)
[2020-01-29] MEDS: ALLOPURINOL 100 MG TAB PO SCH (09:54)
[2020-01-29] MEDS: ENOXAPARIN SOD 40 MG/0.4 ML SYRINGE SC SCH (09:54)
[2020-01-29] MEDS: ATENOLOL 50 MG TAB PO SCH (09:55)
[2020-01-29] MEDS: amLODIPine BESYLATE 5 MG TAB PO SCH (09:56)
--- NOTE | 2020-01-29 09:56 | NUR ---
9521 01/29/20 I attempted to contact Pino with [facility] [phone]-I was referred to call [phone]. I called provided number and spoke with someone in customer services who did not know who Pino is. I received a message from Unique at [facility] offering assistance with discharge planning. I called Unique at [facility] [phone] and left message letting her know that we still need authorization for SNF for this patient.
--- NOTE | 2020-01-29 10:23 | NUR ---
1020 01/29/20 I spoke with Unique at [facility], she referred me to call Thelma regarding SNF authorization request. I called Thelma [phone]-she said right now they are waiving authorizations for SNF placement-I let her know that [facility] is still requesting some type of authorization-provided her with contact information for Blank at [facility] [phone]-she is going to give her a call.
[2020-01-29] MEDS: MORPHINE SULF INJ 2 MG/ML SYRINGE 1ML IV PRN ×3 (10:50→22:07)
[2020-01-29 13:00] VITALS: BP 120/69
--- NOTE | 2020-01-29 16:56 | NUR ---
D/C Planning Beth with [facility] is unable to accept patient at this time. Beth stated they do not have female beds available. Faxed clinical information to [facility], [facility], [facility] rehab, [facility] and [facility]. Per representatives with [facility], [facility] and [facility] they do not have beds available at this time. Per Margarita with [facility] rehab they are willing to accept patient but until Wednesday. Per Iliana with [facility] she will review referral and will follow up with me in the morning. Pending accepting facility.
[2020-01-29 17:00] VITALS: BP 101/52
--- NOTE | 2020-01-29 19:35 | NUR ---
Opening Shift Note Assumed care of patient, awake and alert x4. Incision line to left knee is well approximated, staple line is intact, knee immobilizer is in place to the left leg. No S/S of distress/SOB or pain. Call light is within reach, fall precautions are in place. Instructed on POC and to call for assist PRN, will continue to monitor for changes Q1hr and PRN.
[2020-01-29 22:00] VITALS: BP 92/52
--- NOTE | 2020-01-29 22:07 | NUR ---
PAIN Patient is complaining of pain to the left leg 8/0-10. Morphine given as ordered. Will reassess.
--- NOTE | 2020-01-29 22:40 | NUR ---
PAIN REASSESSMENT Patient states pain level is now 2/0-10, she is comfortable. Will continue to monitor.
[2020-01-30 05:00] VITALS: BP 98/55
--- NOTE | 2020-01-30 06:56 | NUR ---
Patient is resting in bed asleep. No S/S of distress, SOB , or pain. Call light is within reach. Will endorse care to dayshift PRADIP Peralta.
--- NOTE | 2020-01-30 08:00 | NUR ---
RECEIVED PATIENT ALERT AND ORIENTED X4, NOT IN DISTRESS, CLEAR LS IN BILATERAL UPPER AND DIMINISHED IN LOWER LUNG LOBED, RR=18, SAT=93%, DEEP BREATHING AND COUGHING ENCOURAGED, DEMONSTRATED WELL, HEART R=62, DENIED CHEST PAIN OR SOB AT THIS MOMENT, ABDOMEN SOFT WITH HYPO ACTIVE BS, LAST BM=01/26/20 REPORTED, URINE URGENCY REPORTED, SKIN INTACT WARM TO TOUCH, LT, KNEE SURGICAL SITE COVERED WITH DRY AND INTACT DRESSING, RADIAL AND PEDAL PULSES PALPABLE, CAP REFILL<3 SECONDS, LT. FOOT 1+ EDEMA NOTED, RESTING ON BED, DENIED PAIN, HEAD OF BED ELEVATED, BED ON LOW POSITION, RAILS UP X2, CALL LIGHT ON REACH, PENDING SS FOR D/C PROCESS, WILL CONTINUE MONITORING.
[2020-01-30 09:00] VITALS: BP 108/60
[2020-01-30] MEDS: levoFLOXacin 500 MG TAB PO SCH (10:00)
[2020-01-30] MEDS: ALLOPURINOL 100 MG TAB PO SCH (10:35)
[2020-01-30] MEDS: amLODIPine BESYLATE 5 MG TAB PO SCH (10:35)
[2020-01-30] MEDS: PARoxetine 20 MG TAB PO SCH (10:35)
[2020-01-30] MEDS: ENOXAPARIN SOD 40 MG/0.4 ML SYRINGE SC SCH (10:35)
[2020-01-30] MEDS: ATENOLOL 50 MG TAB PO SCH (10:38)
--- NOTE | 2020-01-30 12:30 | NUR ---
TOLERATING BED SCHAFFER, LARGE CONSISTENT BROWN BM NOTED REPORTED, RESTING ON BED, NOT IN DISTRESS, PENDING D/C TO SNF, SS IS PROCESSING D/C ARRANGEMENTS REPORTED BY MARIPOSA GODINEZ, WILL CONTINUE MONITORING.
[2020-01-30] MEDS: MORPHINE SULF INJ 2 MG/ML SYRINGE 1ML IV PRN (12:36)
[2020-01-30] MEDS: ONDANSETRON HCL 4 MG/2 ML VIAL IV PRN (12:37)
[2020-01-30 13:00] VITALS: BP 102/50
--- NOTE | 2020-01-30 14:11 | NUR ---
Nutrition Followup Notes Pt wt is 69.4 kg Pt appetite is good aeb ave 75% x5 PO intake per RN doc. Pt with no noted distress, no complaints. Will continue to monitor PO status, skin status, pertinent labs and weight trends. Will f/u in 3 to 5 days. Est energy needs: 3524-4116 kcals (20-23 kcal/kgBW) Est protein needs: 75-82 gms/day (1.0-1.1 gm/kgBW) Will continue to monitor and reassess prn. LABS: BUN 26 H, CR 1.14 H, GFR 49 L, AST 72 H, ALT 77 H, ALK PHOS 230 H, ALB 1.7 L GI: Last BM noted on 01/27/20, pt with BM every 5-7 days, currently constipated per RN doc. BS: 18 mod risk, please refer to wound assessment report for full details. PES: Problem Altered nutrition related lab values r/t current medical condition aeb hyperchloremia, hyperglycemia, hypoalbuminemia, elev LFTs, elev Alk Phos Comments Will continue to monitor NPO status, skin status, pertinent labs and weight trends. Will f/u in 3 to 5 days. 1) Continue to monitor pt PO intake to meet at least 75% of meals 2) If albumin continues trending down consider Prostat 1 pkt BID 3) Continue current plan of care
--- NOTE | 2020-01-30 16:47 | NUR ---
D/C Planning Patient has been accepted to [facility]:) to room 90 accepting , Dr. Schroeder. Transportation has been arranged with [facility]:) with a 1:00 am sheepskin pickler time via [employer]. Informed PRADIP Sharpe who was covering PRADIP Peralta.
[2020-01-30 17:00] VITALS: BP 110/57
--- NOTE | 2020-01-30 18:56 | NUR ---
PENDING D/C TO [facility], TRANSPORTATION ARRANGED WRISTER TIME 01:00 AM 01/30/20 REPORTED, WILL CONTINUE MONITORING.
--- NOTE | 2020-01-30 19:10 | NUR ---
OPENING NOTE- NOC SHIFT PATIENT IS ALERT AND ORIENTED X4, ANSWERS IN COMPLETE SENTENCES AND MAKES APPROPRIATE EYE CONTACT. PATIENT IS IN BED, BED IS LOCKED AT LOWEST POSITION, BED RAILS UPX2 AND HEAD OF BED IS UP >30 DEGREES. PATIENT IS WEARING A BLACK BRACE TO LEFT KNEE. SURGICAL SITE IS CLEAN AND DRY WEARING CLEAR DRESSING. DISCUSSED POC WITH PATIENT; PATIENT IS AWARE AND AGREES TO TRANSFER TO [facility].
--- NOTE | 2020-01-30 19:25 | NUR ---
PENDING D/C, RESTING ON BED, NOT IN DISTRESS, REPORT WAS GIVEN TO THE HORSE RACE STARTER RN.
[2020-01-30] MEDS: ACETAMINOPHEN 325 MG TAB PO PRN (21:40)
--- NOTE | 2020-01-30 21:41 | NUR ---
DISCHARGE PHOTOS TAKEN TO LEFT KNEE SURGICAL SITE AND RIGHT BUTTOCKS FOR REDNESS.
--- NOTE | 2020-01-30 22:10 | NUR ---
REPORT GIVEN TO SH[facility] AT [facility] [phone] PATIENT TO ROOM [address] ALONSO MD.
--- NOTE | 2020-01-30 22:14 | NUR ---
CALLED FAMILY MEMBER FABY SURESH [phone] TO UPDATE HER WITH PATIENT TRANSFER TO [facility] DURING NIGHT HOURS. GAVE FABY THE [facility] ADDRESS, PHONE NUMBER AND ROOM NUMBER.
--- NOTE | 2020-01-30 23:36 | NUR ---
PATIENT OFF FLOOR WITH TRANSPORTATION PREVIOUSLY ARRANGED VIA GURNEY. ALL PERSONAL BELONGINGS AND DISCHARGE PAPERWORK WITH PATIENT. FAMILY IS AWARE OF TRANSFER TO [facility]. IV DISCONTINUED COMPLETE AND INTACT; PRESSURE APPLIED TO SITE; PATIENT TOLERATED WELL. NO SIGNS OR SYMPTOMS OF DISTRESS, SOB OR PAIN.
== END 2020-01-30 23:25 | DRG 485 ==
LOC: EDBD 16:36 → ER 16:36 → OVERFLOW 16:37 → WEST WING 01-11 02:04
PROVIDERS: ADMIT Nurse Practitioner; ATTEND Family Medicine
PROC: 0SBD0ZZ Excision of Left Knee Joint, Open Approach (ICD-10-PCS; 2020-01-12)
PROC: 0SBD0ZZ Excision of Left Knee Joint, Open Approach (ICD-10-PCS; principal; 2020-01-23 11:39)
PROC: 30233N1 Transfusion of Nonautologous Red Blood Cells into Peripheral Vein, Percutaneous Approach (ICD-10-PCS; 2020-01-25)
DX: M00.062 Staphylococcal arthritis, left knee (principal); J15.6 Pneumonia due to other Gram-negative bacteria; E44.0 Moderate protein-calorie malnutrition; B95.61 Methicillin susceptible Staphylococcus aureus infection as the cause of diseases classified elsewhere; M65.862 Other synovitis and tenosynovitis, left lower leg; I10 Essential (primary) hypertension; E66.9 Obesity, unspecified; F32.9 Major depressive disorder, single episode, unspecified; Z96.642 Presence of left artificial hip joint; Z20.828 Contact with and (suspected) exposure to other viral communicable diseases; M17.0 Bilateral primary osteoarthritis of knee; M16.12 Unilateral primary osteoarthritis, left hip; E78.5 Hyperlipidemia, unspecified; Z82.3 Family history of stroke; Z82.49 Family history of ischemic heart disease and other diseases of the circulatory system; Z85.3 Personal history of malignant neoplasm of breast; Z83.3 Family history of diabetes mellitus; Z68.23 Body mass index [BMI] 23.0-23.9, adult; Z88.5 Allergy status to narcotic agent; Z88.0 Allergy status to penicillin; Z88.2 Allergy status to sulfonamides; Z88.8 Allergy status to other drugs, medicaments and biological substances
CPT/HCPCS: 36415; 71045; 73562; 73700; 80048; 80053; 80076; 81001; 83735; 84550; 85014; 85018; 85025; 85610; 86850; 86900; 86901; 86920; 87040; 87070; 87075; 87077; 87186; 87205; 89060; 96361; 96365; 96375; 97110; 97116; 97163; 97530; G0378; J0696; J1100; J1956; J2001; J2250; J2405; J2704; J3490

== ENCOUNTER 2020-06-05 08:22 | Inpatient (IN) | payer MEDICARE ==
[~2020-06-05] VITALS: Ht 165.1 cm; Wt 73.0 kg
[~2020-06-05 08:22] MED LIST changes: +FAMO-12 PO; +FERR-20 PO; +FLUT1SPR5; +GABA100C9 PO; -HYDR12.56 PO; +MELA3TAB27 PO; -PAR20T PO; +PARO30TA99 PO; -POTA-220 PO; -RANI-226 PO
[2020-06-05] MEDS ORDERED: PROMETHAZINE HCL 25 MG/ML 1ML IV ONE (09:00)
[2020-06-05] MEDS ORDERED: MORPHINE SULF INJ 2 MG/ML SYRINGE 1ML IV ONE (09:00)
[2020-06-05 10:11] LABS: Basophils # (auto) 0.1 10 ^3/uL (0-0.2); Basophils % (auto) 0.6 % (0.0-2.0); Eosinophils # (auto) 0.1 10 ^3/uL (0-0.8); Eosinophils % (auto) 0.7 % (0.0-7.0); Hematocrit 32.4 % (36.0-46.0); Hemoglobin 10.4 g/dL (12.2-16.2); Lymphocytes # (auto) 1.9 10 ^3/uL (0.4-5.4); Lymphocytes % (auto) 16.1 % (10.0-50.0); Mean Corpuscular Hemoglobin 25.5 pg (28.0-32.0); Mean Corpuscular Hgb Conc. 32.2 g/dL (32.0-36.0); Mean Corpuscular Volume 79.3 fL (80.0-100.0); Monocytes # (auto) 0.9 10 ^3/uL (0-1.3); Neutrophils # (auto) 8.6 10 ^3/uL (1.6-8.6); Neutrophils % (auto) 74.6 % (37.0-80.0); Platelet Count (auto) 413 10^3/uL (140-450); Red Blood Cells 4.09 10^6/uL (4.0-5.20); Red Cell Distribution Width 17.9 % (11.8-14.3); White Blood Cell 11.5 10^3/uL (4.4-10.8)
[2020-06-05 10:28] LABS: BUN/Creatinine Ratio 28.2; Calcium 9.2 mg/dL (8.5-10.1); Potassium 4.2 mmol/L (3.5-5.1)
[2020-06-05] MEDS ORDERED: IOHEXOL 300 MG/ML 100ML BOTTLE IJ ONE (12:41)
[2020-06-05] MEDS ORDERED: NITROGLYCERIN 0.4 MG SL TAB SL PRN ×2 (16:00→16:45)
[2020-06-05] MEDS ORDERED: MORPHINE SULF INJ 2 MG/ML SYRINGE 1ML IV PRN ×2 (16:00→16:45)
[2020-06-05] MEDS: SODIUM CHLORIDE 0.9% 1,000 ML IV SCH (16:39)
[2020-06-05] MEDS ORDERED: ACETAMINOPHEN 325 MG TAB PO PRN (16:45)
[2020-06-05] MEDS ORDERED: ONDANSETRON HCL 4 MG/2 ML VIAL IV PRN (16:45)
[2020-06-05] MEDS ORDERED: LORazepam 0.5 MG TAB PO PRN (16:45)
[2020-06-05] MEDS ORDERED: HYDROcodone-ACET 5/325MG TAB PO PRN (16:45)
[2020-06-05] MEDS ORDERED: DOCUSATE SOD 100 MG CAP PO PRN (16:45)
[2020-06-05] MEDS ORDERED: ALUM & MAG HYDROX-SIMETH LIQ(MAALOX) 30 ML PO PRN (16:45)
[2020-06-05] MEDS ORDERED: LACTULOSE 20Gm/30ML SOLN PO PRN (16:45)
[2020-06-05] MEDS ORDERED: AZTREONAM 1GM INJ 1 GM in D5W 5% 50 ML IV ONE (17:00)
[2020-06-05] MEDS: FERROUS SULFATE 325 MG TAB PO SCH (18:16)
--- NOTE | 2020-06-05 18:33 | NUR ---
RECEIVED REPORT FROM FOOD AND BEVERAGE CONTROLLER. SUSTAINED A MECHANICAL FALL AT HOME. USES A CANE. SKIN INTACT. A&O X4. USES BEDPAN TO VOID. IV TO LT FOREARM 22 GA. NS AT 60CC/HR.
--- NOTE | 2020-06-05 18:45 | NUR ---
ARRIVES TO ROOM 222A. ON TELE MONITOR 39 NSR 78. A&O VERBALLY APPROPRIATE. TAKING IN EVENING MEAL. HAS A SOFT CHEST BRACE IN PLACE. CALL LIGHT IN REACH.
[2020-06-05] MEDS ORDERED: AZITHROMYCIN 500MG/ 250ML 250 ML IV ONE (19:00)
--- NOTE | 2020-06-05 19:30 | NUR ---
Opening Shift Note Assumed care of patient, awake and alert. No S/S of distress/SOB or pain. Instructed on POC and to call for assist PRN, will continue to monitor for changes Q1hr and PRN.
[2020-06-05 19:43] LABS: % Iron Saturation 13.5 % (15-50); Cholesterol 127 mg/dL (< 200)
[2020-06-05 19:47] LABS: HDL Cholesterol 47 mg/dL (40-59); LDL Cholesterol 65 mg/dL (< 100); Triglycerides 121 mg/dL (< 150)
[2020-06-05] MEDS: FAMOTIDINE 20 MG TAB PO SCH (21:18)
[2020-06-05] MEDS: ATORVASTATIN 20 MG TAB PO SCH (21:18)
[2020-06-05 21:59] VITALS: BP 127/58
[2020-06-05] MEDS: MORPHINE SULF INJ 2 MG/ML SYRINGE 1ML IV PRN (23:52)
[2020-06-06 04:55] VITALS: BP 118/61
[2020-06-06] MEDS: AZTREONAM 1GM INJ 1 GM in D5W 5% 50 ML IV SCH ×2 (05:30→13:32)
--- NOTE | 2020-06-06 07:28 | NUR ---
care endorsed to day RN. no sign of distress/pain at this time
--- NOTE | 2020-06-06 07:45 | NUR ---
Opening Shift Note Assumed care of patient, awake, alert, and oriented. No S/S of distress/SOB. Patient c/o 04/05 achy right sided rib pain, will medicate per MD orders. Bed in lowest/locked position, bed rails up x2, call light within reach. Instructed on POC and to call for assist PRN. Will continue to monitor for changes Q1hr and PRN.
[2020-06-06 08:23] VITALS: BP 124/69
[2020-06-06] MEDS: AZITHROMYCIN 500MG/ 250ML 250 ML IV SCH (08:44)
[2020-06-06] MEDS: FAMOTIDINE 20 MG TAB PO SCH ×2 (08:44→23:20)
[2020-06-06] MEDS: amLODIPine BESYLATE 5 MG TAB PO SCH (08:45)
[2020-06-06] MEDS: ASPirin 81 mg TAB PO SCH (08:45)
[2020-06-06] MEDS: PARoxetine 20 MG TAB PO SCH (08:45)
[2020-06-06] MEDS: ALLOPURINOL 100 MG TAB PO SCH (08:45)
[2020-06-06] MEDS: FERROUS SULFATE 325 MG TAB PO SCH ×2 (08:45→17:32)
[2020-06-06] MEDS: GABAPENTIN 100 MG CAP PO SCH (08:45)
[2020-06-06] MEDS: ATENOLOL 50 MG TAB PO SCH (08:46)
[2020-06-06] MEDS: MORPHINE SULF INJ 2 MG/ML SYRINGE 1ML IV PRN ×2 (08:46→16:41)
[2020-06-06] MEDS: SODIUM CHLORIDE 0.9% 1,000 ML IV SCH (08:47)
[2020-06-06 09:26] LABS: Urine Bacteria NONE SEEN /hpf (None Seen); Urine Blood Negative /uL (Negative); Urine Specific Gravity 1.034 (1.001-1.035); Urine WBC 1 /hpf (0 - 5)
[2020-06-06 09:44] LABS: Alcohol, Urine < 3.0 mg/dL (0-10); Barbiturate Scree,Urine NEGATIVE (NEGATIVE); Benzodiazephine Screen, Urine NEGATIVE (NEGATIVE); Cannabinoid Screen, Urine NEGATIVE (NEGATIVE)
[2020-06-06 09:51] LABS: Amphetamine Screen, Urine NEGATIVE (NEGATIVE); Cocaine Screen, Urine NEGATIVE (NEGATIVE); Opiate Scree,Urine POSITIVE (NEGATIVE); Phencyclidine Screen, Urine NEGATIVE (NEGATIVE)
--- NOTE | 2020-06-06 12:10 | NUR ---
MD ROUNDS DR Bren MOCTEZUMA AT BEDSIDE DISCUSSING POC WITH PATIENT. NEW ORDERS RECEIVED/WILL CARRY OUT. WILL CONTINUE TO MONITOR
[2020-06-06 12:29] VITALS: BP 115/56
[2020-06-06 13:08] LABS: Basophils # (auto) 0.1 10 ^3/uL (0-0.2); Basophils % (auto) 0.7 % (0.0-2.0); Eosinophils # (auto) 0.2 10 ^3/uL (0-0.8); Eosinophils % (auto) 2.8 % (0.0-7.0); Hematocrit 33.6 % (36.0-46.0); Hemoglobin 10.3 g/dL (12.2-16.2); Lymphocytes # (auto) 1.5 10 ^3/uL (0.4-5.4); Lymphocytes % (auto) 17.7 % (10.0-50.0); Mean Corpuscular Hemoglobin 25.1 pg (28.0-32.0); Mean Corpuscular Hgb Conc. 30.8 g/dL (32.0-36.0); Mean Corpuscular Volume 81.5 fL (80.0-100.0); Monocytes # (auto) 0.8 10 ^3/uL (0-1.3); Monocytes % (auto) 9.7 % (0.0-12.0); Neutrophils # (auto) 5.7 10 ^3/uL (1.6-8.6); Neutrophils % (auto) 69.1 % (37.0-80.0); Nucleated Red Blood Cells % 0.3 %; Platelet Count (auto) 396 10^3/uL (140-450); Red Blood Cells 4.12 10^6/uL (4.0-5.20); Red Cell Distribution Width 18.2 % (11.8-14.3); White Blood Cell 8.2 10^3/uL (4.4-10.8)
[2020-06-06 16:06] VITALS: BP 113/56
[2020-06-06 20:00] VITALS: BP 124/69
[2020-06-06 22:00] VITALS: BP 116/60
[2020-06-06] MEDS: ATORVASTATIN 20 MG TAB PO SCH (23:20)
[2020-06-07] MEDS: AZTREONAM 1GM INJ 1 GM in D5W 5% 50 ML IV SCH ×4 (01:21→21:45)
[2020-06-07] MEDS: SODIUM CHLORIDE 0.9% 1,000 ML IV SCH ×2 (01:59→18:17)
[2020-06-07 05:00] VITALS: BP 121/69
[2020-06-07 09:00] VITALS: BP 129/88
[2020-06-07] MEDS: FERROUS SULFATE 325 MG TAB PO SCH ×2 (09:30→18:17)
[2020-06-07] MEDS: AZITHROMYCIN 500MG/ 250ML 250 ML IV SCH (09:30)
[2020-06-07] MEDS: PARoxetine 20 MG TAB PO SCH (09:30)
[2020-06-07] MEDS: ALLOPURINOL 100 MG TAB PO SCH (09:31)
[2020-06-07] MEDS: ASPirin 81 mg TAB PO SCH (09:31)
[2020-06-07] MEDS: GABAPENTIN 100 MG CAP PO SCH (09:31)
[2020-06-07] MEDS: ATENOLOL 50 MG TAB PO SCH (09:31)
[2020-06-07] MEDS: amLODIPine BESYLATE 5 MG TAB PO SCH (09:31)
[2020-06-07] MEDS: FAMOTIDINE 20 MG TAB PO SCH ×2 (09:31→21:46)
[2020-06-07] MEDS ORDERED: MILK OF MAGNESIA 30ML SUSP PO ONE (10:30)
--- NOTE | 2020-06-07 12:02 | NUR ---
EEG COMPLETED AT BEDSIDE. PRIMARY RN ANTWAN DEUTSCH.
[2020-06-07 13:00] VITALS: BP 109/54
--- NOTE | 2020-06-07 15:56 | NUR ---
IV insertion IV access obtained, by PRADIP Black, via clean sterile technique by inserting 20 gauge catheter at SEDA after 3 attempts. IV secured properly. No trauma to site. Patient tolerated well.
[2020-06-07] MEDS: SODIUM FERR GLUC 62.5MG/5ML 125 MG in SODIUM CHL 0.9% 100 ML IV SCH (16:50)
[2020-06-07 17:00] VITALS: BP 105/56
--- NOTE | 2020-06-07 19:30 | NUR ---
Opening Shift Note Assumed care of patient, awake and alert. No S/S of distress/SOB. Pain management options discussed with patient. Instructed on POC and to call for assist PRN, will continue to monitor for changes Q1hr and PRN.
[2020-06-07] MEDS: MORPHINE SULF INJ 2 MG/ML SYRINGE 1ML IV PRN (19:36)
[2020-06-07 20:00] VITALS: BP 120/72
[2020-06-07] MEDS: ATORVASTATIN 20 MG TAB PO SCH (21:45)
[2020-06-07 22:00] VITALS: BP 120/72
[2020-06-08] MEDS: MORPHINE SULF INJ 2 MG/ML SYRINGE 1ML IV PRN ×2 (01:13→08:21)
--- NOTE | 2020-06-08 01:14 | NUR ---
Administered Morphine 2 mg IV PRN severe pain 7 out of 10 per MD order while covering RN on lunch break.
[2020-06-08 05:00] VITALS: BP 120/70
[2020-06-08] MEDS: AZTREONAM 1GM INJ 1 GM in D5W 5% 50 ML IV SCH (06:56)
[2020-06-08] MEDS: FERROUS SULFATE 325 MG TAB PO SCH (08:21)
--- NOTE | 2020-06-08 08:21 | NUR ---
Pain Patient complained of pain at level 7-8/10. Medicated with Morphine 2mg as ordered. Will reassess as per protocol.
[2020-06-08 08:44] VITALS: BP 127/65
[2020-06-08] MEDS: AZITHROMYCIN 500MG/ 250ML 250 ML IV SCH (09:23)
[2020-06-08] MEDS: ASPirin 81 mg TAB PO SCH (09:23)
[2020-06-08] MEDS: GABAPENTIN 100 MG CAP PO SCH (09:24)
[2020-06-08] MEDS: amLODIPine BESYLATE 5 MG TAB PO SCH (09:24)
[2020-06-08] MEDS: FAMOTIDINE 20 MG TAB PO SCH (09:24)
[2020-06-08] MEDS: ALLOPURINOL 100 MG TAB PO SCH (09:25)
[2020-06-08] MEDS: ATENOLOL 50 MG TAB PO SCH (09:25)
--- NOTE | 2020-06-08 09:45 | NUR ---
Hospitalist Rounding Dr. Andrea at bedside. Patient for discharge after IV iron is administered at noon.
[2020-06-08] MEDS ORDERED: PARoxetine 20 MG TAB PO SCH (10:00)
--- NOTE | 2020-06-08 10:35 | NUR ---
[facility] at patient's request.
[2020-06-08] MEDS: SODIUM CHLORIDE 0.9% 1,000 ML IV SCH (11:19)
[2020-06-08 12:44] VITALS: BP 111/61
--- NOTE | 2020-06-08 13:00 | NUR ---
LBM Patient has not had a bowel movement for a few days now. Patient states that it is normal for her, she will take stool softener when she get home.
[2020-06-08] MEDS: SODIUM FERR GLUC 62.5MG/5ML 125 MG in SODIUM CHL 0.9% 100 ML IV SCH (13:06)
--- NOTE | 2020-06-08 14:59 | NUR ---
Discharge instructions given as ordered. Encourage to follow up with PMD as instructed. All questions and concerns addressed. Patient verbalized understanding. Medication reconciliation form completed and copy given to patient. Home medications held in Pharmacy returned to patient. IV removed with catheter intact, pressure dressing applied. Telemetry unit returned to ICU. Patient awaiting transport.
--- NOTE | 2020-06-08 16:10 | NUR ---
Discharge Patient taken to vehicle via wheelchair with all personal belongings, accompanied by staff. No distress noted at time of discharge.
[2020-06-08 16:50] VITALS: BP 107/62
== END 2020-06-08 16:10 | disposition home or self-care (01) | DRG 183 ==
LOC: EDBD 08:22 → ER 08:22 → TELE 08:23 → TELE-CENTR 18:53
PROVIDERS: ADMIT Hospitalist; ATTEND Family Medicine
DX: S22.41XA Multiple fractures of ribs, right side, initial encounter for closed fracture (principal); J18.9 Pneumonia, unspecified organism; W18.30XA Fall on same level, unspecified, initial encounter; R19.5 Other fecal abnormalities; I10 Essential (primary) hypertension; M10.9 Gout, unspecified; E78.5 Hyperlipidemia, unspecified; K21.9 Gastro-esophageal reflux disease without esophagitis; M81.0 Age-related osteoporosis without current pathological fracture; F32.9 Major depressive disorder, single episode, unspecified; M19.90 Unspecified osteoarthritis, unspecified site; C50.912 Malignant neoplasm of unspecified site of left female breast; D50.9 Iron deficiency anemia, unspecified; G62.9 Polyneuropathy, unspecified; E78.00 Pure hypercholesterolemia, unspecified; K59.04 Chronic idiopathic constipation; Z79.82 Long term (current) use of aspirin; Y99.8 Other external cause status; Y93.E1 Activity, personal bathing and showering; M85.80 Other specified disorders of bone density and structure, unspecified site; Y92.002 Bathroom of unspecified non-institutional (private) residence as the place of occurrence of the external cause; Z82.3 Family history of stroke; Z82.49 Family history of ischemic heart disease and other diseases of the circulatory system; Z83.3 Family history of diabetes mellitus; Z85.3 Personal history of malignant neoplasm of breast; Z96.642 Presence of left artificial hip joint; D63.8 Anemia in other chronic diseases classified elsewhere; Z96.652 Presence of left artificial knee joint
CPT/HCPCS: 36415; 70450; 71046; 71101; 74177; 80048; 80061; 80307; 81001; 83036; 83540; 83550; 84484; 85025; 87040; 87086; 93306; 95819; G0378; J7060

== ENCOUNTER 2023-07-16 14:22 | Emergency (ER) | payer MEDICARE ==
[~2023-07-16] VITALS: Ht 157.5 cm; Wt 85.0 kg
[~2023-07-16 14:22] MED LIST changes: -ASPI-231 PO; +ASPI1TAB20 PO; -FERR-20 PO; +FERR325T24 PO; +GABA-1308 PO; -GABA100C9 PO
[2023-07-16] MEDS ORDERED: ACETAMINOPHEN 325 MG TAB PO ONE (15:30)
[2023-07-16] MEDS ORDERED: ACE3T PO (16:41)
[2023-07-16 20:30] VITALS: BP 132/75; PULSE 54; RESP 17; TEMP 97.8; O2SAT 98
== END 2023-07-16 20:32 | disposition home or self-care (01) ==
LOC: ER 14:22
DX: S22.42XA Multiple fractures of ribs, left side, initial encounter for closed fracture (principal); I10 Essential (primary) hypertension; E78.5 Hyperlipidemia, unspecified; M10.9 Gout, unspecified; K21.9 Gastro-esophageal reflux disease without esophagitis; Z79.82 Long term (current) use of aspirin; Z79.899 Other long term (current) drug therapy; Z88.0 Allergy status to penicillin; Z88.2 Allergy status to sulfonamides; Z88.8 Allergy status to other drugs, medicaments and biological substances; W01.0XXA Fall on same level from slipping, tripping and stumbling without subsequent striking against object, initial encounter; Y93.89 Activity, other specified; Y92.89 Other specified places as the place of occurrence of the external cause; Y99.8 Other external cause status
CPT/HCPCS: 71101